=== PATIENT | female | born 1955 | race Caucasian/White ===

== ENCOUNTER 2023-11-03 14:16 | Inpatient (IN) | payer OTHER ==
[~2023-11-03] VITALS: Ht 167.6 cm; Wt 98.2 kg
[2023-11-03] VITALS (13 sets, daily range): BP systolic 104–126; BP diastolic 70–97
[~2023-11-03 14:16] MED LIST changes: -ASPI325; +Heparin Sodium,Porcine 5,000 UNIT/0.5 ML SDV SC ONE; -MAGNESIUM GLYC100 MG PO; -[UNRECOGNIZED DRUG - OTHER] PO
[2023-11-03] MEDS ORDERED: Verapamil HCL 2.5 MG/ML 2ML Injection ONE (14:18)
[2023-11-03] MEDS ORDERED: Heparin Sodium 1000 Units/ML 10ML MDV ONE ×2 (14:18→14:24)
[2023-11-03] MEDS ORDERED: Nitroglycerin 2 MG/20 ML BTL ONE (14:19)
[2023-11-03] MEDS ORDERED: NS 1,000 ML IV ONE ×2 (14:19→14:24)
[2023-11-03] MEDS ORDERED: NS 250 ML IV ONE (14:19)
[2023-11-03] MEDS ORDERED: FentaNYL Citrate 50 MCG/ML 2 ML Injection ONE (14:24)
[2023-11-03] MEDS ORDERED: Midazolam HCl 1MG / ML 2ML Vial ONE (14:24)
[2023-11-03] MEDS ORDERED: Ticagrelor 90 MG TABLET ONE (14:57)
[2023-11-03] MEDS ORDERED: Atropine Sulfate 0.1 MG/ML 10ML SYR ONE (15:10)
[2023-11-03 15:17] LABS: BASOPHILS ABSOLUTE AUTO 0.04 K/mm3 (0.00-0.23); BASOPHILS PERCENT AUTO 0 % (0-2); EOSINOPHILS ABSOLUTE AUTO 0.01 K/mm3 (0.00-0.68); EOSINOPHILS PERCENT AUTO 0 % (0-6); Hemoglobin 12.6 g/dL (11.5-16.0); IMMATURE GRAN ABSOLUTE AUTO 0.06 K/mm3 (0.00-0.10); IMMATURE GRAN PERCENT AUTO 0 % (0-1); LYMPHOCYTES ABSOLUTE AUTO 1.33 K/mm3 (0.84-5.20); LYMPHOCYTES PERCENT AUTO 10 % (21-46); MONOCYTES ABSOLUTE AUTO 1.25 K/mm3 (0.16-1.47); MONOCYTES PERCENT AUTO 9 % (4-13); Mean Corpuscular HGB 28.4 pg (26.0-34.0); Mean Corpuscular HGB Conc 32.3 g/dL (31.5-36.5); Mean Corpuscular Volume 88 fL (80-100); Mean Platelet Volume 11.2 fL (9.1-12.4); NEUTROPHILS PERCENT AUTO 81 % (41-73); Platelet Count 313 K/mm3 (150-400); RDW Coefficient Variation 14.5 % (11.7-14.2); RDW Standard Deviation 46.3 fL (35.1-46.3); Red Blood Cell Count 4.43 M/mm3 (3.80-5.20); White Blood Cell Count 13.79 K/mm3 (4.00-11.30)
[2023-11-03] MEDS ORDERED: Phenylephrine HCl 100 MCG/ML-NS 10MLSYR (1MG/10ML) ONE (15:18)
[2023-11-03] MEDS ORDERED: NS 500 ML IV ONE (15:32)
[2023-11-03 15:46] LABS: Albumin, Blood 3.1 g/dL (3.4-5.0); Albumin/Globulin Ratio 0.9 (0.8-1.8); Bilirubin, Total 0.6 mg/dL (0.1-1.0); Bun/Creatinine Ratio 28.9 (12.0-20.0); Creatinine, Blood 0.62 mg/dL (0.40-1.00); Globulin, Blood 3.4 g/dL (2.2-4.0); Potassium, Blood 4.1 mmol/L (3.5-5.5); Total Protein, Blood 6.5 g/dL (6.4-8.2)
[2023-11-03] MEDS ORDERED: Nitroglycerin 0.4 MG SUBL ONE (16:02)
[2023-11-03] MEDS ORDERED: ASPI325 (16:29)
--- NOTE | 2023-11-03 16:36 | NUR ---
ASSUMED CARE PATIENT ARRIVED TO ICU 1 FROM CALENDER TENDER VIA BED @ 1623. MONITOR SHOWS SR WITH RATE 60'S, MINIMAL ST ELEVATION. BP STABLE AND SPO2 HIGH 90'S ON ROOM AIR. TR BAND TO RT RADIAL WITH NO BLEEDING OR HEMATOMA-9CC AIR IN PLACE PER CALENDER TENDER NURSE. EKG COMPLETED UPON ARRIVAL AND ADMINISTRATION DEAN IN ROOM. PATIENT C/O MINIMAL CP, DIAPHORESIS, AND RT ELBOW PAIN THAT IS ALL IMPROVED FROM EARLIER.
[2023-11-03] MEDS ORDERED: MAGNESIUM GLYC100 MG PO (17:05)
[2023-11-03] MEDS ORDERED: HydrALAZINE HCl 20 MG / ML 1ML Vial IV PRN (18:30)
[2023-11-03] MEDS ORDERED: Acetaminophen 325 MG TABLET PO PRN (18:45)
--- NOTE | 2023-11-03 19:19 | NUR ---
SHIFT SUMMARY PATIENT REMAINS FREE OF CP AND DYSPNEA. RT RADIAL SITE REMAINS C/D/I AND FREE OF HEMATOMA, SOFT AND NONTENDER. TR BAND IN PLACE WITH 3CC AIR IN IT. ARMBOARD OVER RT WRIST. MONITOR REMAINS SINUS RHYTHM WITH RATE 60'S. BP STABLE. DR. MATT CAME TO BEDSIDE TO ASSESS PATIENT. PATIENT TOLERATED PO INTAKE WELL. NO BM OR URINE OUTPUT THIS SHIFT. NO OTHER CHANGES THIS SHIFT. BEDSIDE SHIFT REPORT COMPLETED WITH ROGER KRAFT.
[2023-11-03 19:32] LABS: Free Thyroxine 1.36 ng/dL (0.70-1.60)
[2023-11-03 19:33] LABS: Triiodothyronine, Free 2.15 pg/mL (2.18-3.98)
[2023-11-03] MEDS ORDERED: Ticagrelor 90 MG TABLET PO SCH (21:00)
[2023-11-03] MEDS ORDERED: [UNRECOGNIZED DRUG - OTHER] PO (21:22)
--- NOTE | 2023-11-03 23:42 | NUR ---
COBRA TRANSFER REPORT GIVEN TO ALEXANDER DURAN FOR ASSUMPTION OF CARE TO NOTIFY HIM THAT THE PATIENT LEFT WITH MEDICAL TRANSPORT TO [facility] AT 2325. PATIENT IS ALERT AND ORIENTED X4. HAS HAD NO COMPLAINTS OF CHEST PAIN. BECOMES SHORT OF BREATH UPON EXERTION. VITAL SIGNS STABLE ON ROOM AIR. IV SALINE LOCKED. TR BAND REMOVED, NO SIGNS OF BLEEDING AT RIGHT RADIAL ACCESS SITE. ARM BOARD IN PLACE. BELONGINGS SENT WITH PATIENT INCLUDING: WALLET, KEYS, GLASSES, CELL PHONE, PHONE LEAD BUSINESS SYSTEMS ANALYST, SHOES, CLOTHING, AND HOME MEDICATION.
[2023-11-04] MEDS ORDERED: Insulin Regular 100 UNIT/ML 10ML Vial SC SCH (07:30)
[2023-11-04] MEDS ORDERED: Atorvastatin 40 MG Tab PO SCH (09:00)
[2023-11-04] MEDS ORDERED: Aspirin 81 MG Chew PO SCH (09:00)
== END 2023-11-03 23:30 | disposition short-term general hospital (02) | DRG 322 ==
LOC: ER 14:16 → ICUE 14:23
PROVIDERS: Emergency Medicine; Family Medicine; ADMIT Student in an Organized Health Care Education/Training Program
PROC: 027034Z Dilation of Coronary Artery, One Artery with Drug-eluting Intraluminal Device, Percutaneous Approach (ICD-10-PCS; principal; 2023-11-03)
PROC: 4A023N7 Measurement of Cardiac Sampling and Pressure, Left Heart, Percutaneous Approach (ICD-10-PCS; 2023-11-03)
PROC: B2111ZZ Fluoroscopy of Multiple Coronary Arteries using Low Osmolar Contrast (ICD-10-PCS; 2023-11-03)
DX: I21.19 ST elevation (STEMI) myocardial infarction involving other coronary artery of inferior wall (principal); E87.1 Hypo-osmolality and hyponatremia; I25.10 Atherosclerotic heart disease of native coronary artery without angina pectoris; E78.5 Hyperlipidemia, unspecified; E66.01 Morbid (severe) obesity due to excess calories; G47.30 Sleep apnea, unspecified; M54.9 Dorsalgia, unspecified; I11.0 Hypertensive heart disease with heart failure; I50.9 Heart failure, unspecified; G89.29 Other chronic pain; D72.829 Elevated white blood cell count, unspecified; E11.9 Type 2 diabetes mellitus without complications; Z90.49 Acquired absence of other specified parts of digestive tract; Z91.199 Patient's noncompliance with other medical treatment and regimen due to unspecified reason; Z88.8 Allergy status to other drugs, medicaments and biological substances; Z79.82 Long term (current) use of aspirin; Z79.899 Other long term (current) drug therapy; Z87.891 Personal history of nicotine dependence; Z68.35 Body mass index [BMI] 35.0-35.9, adult
CPT/HCPCS: 76937; 80053; 83036; 84439; 84481; 84484; 85025; 85347; 85730; 93005; 93010; 93458; 99152; 99153; 99285-25; A9270; C1725; C1769; C1874; C1887; C1894; C8929; C9606; J0461; J1644; J2250; J2371; J3010; J7030; J7040; J7050; Q9957; Q9967

== ENCOUNTER → 2023-11-03 | Outpatient (CLI) | payer OTHER ==
[~2023-11-03] MED LIST: ACET500 PO; ASPI325; IBUP600 PO; IBUP800 PO; MAGNESIUM GLYC100 MG PO; OXYACE5T PO; RXOXYACE PO; [UNRECOGNIZED DRUG - OTHER] PO
[2023-11-03 14:00] LABS: BASOPHILS ABSOLUTE AUTO 0.03 K/mm3 (0.00-0.23); BASOPHILS PERCENT AUTO 0 % (0-2); EOSINOPHILS PERCENT AUTO 0 % (0-6); Hematocrit 43.2 % (33.0-51.0); Hemoglobin 13.9 g/dL (11.5-16.0); IMMATURE GRAN ABSOLUTE AUTO 0.07 K/mm3 (0.00-0.10); IMMATURE GRAN PERCENT AUTO 1 % (0-1); LYMPHOCYTES ABSOLUTE AUTO 1.24 K/mm3 (0.84-5.20); LYMPHOCYTES PERCENT AUTO 8 % (21-46); MONOCYTES ABSOLUTE AUTO 1.42 K/mm3 (0.16-1.47); MONOCYTES PERCENT AUTO 10 % (4-13); Mean Corpuscular HGB 28.6 pg (26.0-34.0); Mean Corpuscular HGB Conc 32.2 g/dL (31.5-36.5); Mean Corpuscular Volume 89 fL (80-100); Mean Platelet Volume 11.2 fL (9.1-12.4); NEUTROPHILS ABSOLUTE AUTO 12.06 K/mm3 (1.96-9.15); NEUTROPHILS PERCENT AUTO 81 % (41-73); Platelet Count 340 K/mm3 (150-400); RDW Coefficient Variation 14.7 % (11.7-14.2); RDW Standard Deviation 46.7 fL (35.1-46.3); Red Blood Cell Count 4.86 M/mm3 (3.80-5.20); White Blood Cell Count 14.82 K/mm3 (4.00-11.30)
[2023-11-03 14:18] LABS: Albumin, Blood 3.6 g/dL (3.4-5.0); Albumin/Globulin Ratio 0.9 (0.8-1.8); Bilirubin, Total 0.7 mg/dL (0.1-1.0); Bun/Creatinine Ratio 17.5 (12.0-20.0); Calcium, Blood 9.3 mg/dL (8.5-10.1); Creatinine, Blood 0.97 mg/dL (0.40-1.00); Globulin, Blood 3.9 g/dL (2.2-4.0); Magnesium, Blood 2.1 mg/dL (1.6-2.4); Thyroid Stimulating Hormone 5.127 uIU/mL (0.360-4.800); Total Protein, Blood 7.5 g/dL (6.4-8.2)
== END | disposition home or self-care (01) ==
LOC: LAB SHORT 13:54 → LAB 13:54
PROVIDERS: Chiropractor
DX: R10.13 Epigastric pain (principal); R53.83 Other fatigue
CPT/HCPCS: 80053; 83735; 83880; 84443; 84484; 85025; 85379

== ENCOUNTER → 2024-01-26 | Outpatient (CLI) | payer OTHER ==
[~2024-01-26] MED LIST changes: +ASPI325; -Heparin Sodium,Porcine 5,000 UNIT/0.5 ML SDV SC ONE; +MAGNESIUM GLYC100 MG PO; +[UNRECOGNIZED DRUG - OTHER] PO
[2024-01-26 13:59] LABS: Creatinine, Urine Random 58.4 mg/dL (27.00-270.00)
[2024-01-26 14:01] LABS: Microalb/Creat Ratio UR, Rand 10.908 mg/g (0.000-30.000); Microalbumin, Random Urine 6.37 mg/L (0.000-20.000)
== END | disposition home or self-care (01) ==
LOC: LAB 10:00 → LAB SHORT 10:00
PROVIDERS: Physician Assistant Medical
DX: E11.9 Type 2 diabetes mellitus without complications (principal)
CPT/HCPCS: 82043; 82570

== ENCOUNTER 2024-04-25 17:36 | Inpatient (IN) | payer OTHER ==
[~2024-04-25] VITALS: Ht 167.6 cm; Wt 84.6 kg
[2024-04-25] MEDS ORDERED: FLU VACC TS2024-25(6MOS UP)/PF 45 MCG/0.5 ML SYRINGE IM SCH (18:05)
[2024-04-25] MEDS ORDERED: ATOR40TA PO (18:09)
[2024-04-25] MEDS ORDERED: CLOP75 PO (18:09)
[2024-04-25] MEDS ORDERED: FURO40 PO (18:10)
[2024-04-25] MEDS ORDERED: DOXE25 PO (18:10)
[2024-04-25] MEDS ORDERED: FARXIGA10 MG PO (18:10)
[2024-04-25] MEDS ORDERED: K-TAB ER20 ME1 PO (18:11)
[2024-04-25] MEDS ORDERED: Ropinirole HCl1 MG PO (18:12)
[2024-04-25 18:32] LABS: BASOPHILS ABSOLUTE AUTO 0.05 K/mm3 (0.00-0.23); BASOPHILS PERCENT AUTO 1 % (0-2); EOSINOPHILS ABSOLUTE AUTO 0.02 K/mm3 (0.00-0.68); EOSINOPHILS PERCENT AUTO 0 % (0-6); Hematocrit 24.3 % (33.0-51.0); Hemoglobin 7.2 g/dL (11.5-16.0); IMMATURE GRAN ABSOLUTE AUTO 0.02 K/mm3 (0.00-0.10); IMMATURE GRAN PERCENT AUTO 0 % (0-1); LYMPHOCYTES PERCENT AUTO 18 % (21-46); MONOCYTES ABSOLUTE AUTO 0.93 K/mm3 (0.16-1.47); MONOCYTES PERCENT AUTO 10 % (4-13); Mean Corpuscular HGB 23.4 pg (26.0-34.0); Mean Corpuscular HGB Conc 29.6 g/dL (31.5-36.5); Mean Corpuscular Volume 79 fL (80-100); Mean Platelet Volume 10.8 fL (9.1-12.4); NEUTROPHILS ABSOLUTE AUTO 7.02 K/mm3 (1.96-9.15); NEUTROPHILS PERCENT AUTO 71 % (41-73); Platelet Count 473 K/mm3 (150-400); RDW Standard Deviation 54.6 fL (35.1-46.3); Red Blood Cell Count 3.08 M/mm3 (3.80-5.20); White Blood Cell Count 9.84 K/mm3 (4.00-11.30)
[2024-04-25] MEDS ORDERED: Acetaminophen 325 MG TABLET PO PRN (18:35)
--- NOTE | 2024-04-25 18:42 | NUR ---
ARRIVAL TO PCU: Patient arrived to PCU 07 via WC from the cardiology office. She is alert and oriented x3. She reported a mild headache, Tylenol given. HRR, VSS. She is 100 % on RA. She has 3+ pitting edema to BLE. She has a compression sleeve to her RLE. She has a Kerlex dressing to her LLE, she states home health has been coming out to change her dressings. She states she uses her walker and WC at home to transfer. She states she recently had a prolonged stay at a hospital [facility] and has been home for a couple of months with her . Dr. Rivera is at the bedside. See new orders. Isauro RN at bedside to attempt IV. Labs have been drawn. Patient denies other needs at this time. Call light in reach.
[2024-04-25 18:50] VITALS: BP 126/70
[2024-04-25] MEDS ORDERED: CeFAZolin Sodium 1,000 MG in NS 50 ML IV SCH (19:00)
[2024-04-25 19:09] LABS: Albumin, Blood 3.3 g/dL (3.4-5.0); Albumin/Globulin Ratio 0.9 (0.8-1.8); Bilirubin, Total 0.6 mg/dL (0.1-1.0); Bun/Creatinine Ratio 18.2 (12.0-20.0); C-Reactive Protein, High Sens. 13.8 mg/dL (0.000-3.000); Calcium, Blood 9.2 mg/dL (8.5-10.1); Creatinine, Blood 1.48 mg/dL (0.40-1.00); Globulin, Blood 3.7 g/dL (2.2-4.0); Potassium, Blood 3.9 mmol/L (3.5-5.5)
[2024-04-25] MEDS ORDERED: rOPINIRole HCl 2 MG Tab PO SCH (21:00)
[2024-04-25] MEDS ORDERED: Lactobacil 2-S.Thermo-Bifido 1 1 Cap PO SCH (21:00)
[2024-04-25] MEDS ORDERED: Misc. Capsule PO SCH (21:00)
[2024-04-25] MEDS ORDERED: Apixaban 5 MG Tab PO SCH (21:00)
[2024-04-25] MEDS ORDERED: Etomidate 2MG / ML 10ML Vial XX ONE (21:26)
[2024-04-25] MEDS ORDERED: Midazolam HCl 1MG / ML 2ML Vial XX ONE (21:26)
[2024-04-25 21:45] VITALS: BP 118/72
[2024-04-26] VITALS (9 sets, daily range): BP systolic 100–123; BP diastolic 61–84
[2024-04-26] MEDS ORDERED: Pantoprazole Sodium 40 MG Tab PO SCH (06:00)
[2024-04-26 06:53] LABS: BASOPHILS ABSOLUTE AUTO 0.04 K/mm3 (0.00-0.23); BASOPHILS PERCENT AUTO 1 % (0-2); EOSINOPHILS ABSOLUTE AUTO 0.03 K/mm3 (0.00-0.68); EOSINOPHILS PERCENT AUTO 0 % (0-6); Hematocrit 21.4 % (33.0-51.0); Hemoglobin 6.5 g/dL (11.5-16.0); IMMATURE GRAN ABSOLUTE AUTO 0.03 K/mm3 (0.00-0.10); IMMATURE GRAN PERCENT AUTO 0 % (0-1); LYMPHOCYTES ABSOLUTE AUTO 1.29 K/mm3 (0.84-5.20); LYMPHOCYTES PERCENT AUTO 16 % (21-46); MONOCYTES ABSOLUTE AUTO 0.68 K/mm3 (0.16-1.47); MONOCYTES PERCENT AUTO 9 % (4-13); Mean Corpuscular HGB 24.2 pg (26.0-34.0); Mean Corpuscular HGB Conc 30.4 g/dL (31.5-36.5); Mean Corpuscular Volume 80 fL (80-100); Mean Platelet Volume 10.5 fL (9.1-12.4); NEUTROPHILS ABSOLUTE AUTO 5.87 K/mm3 (1.96-9.15); NEUTROPHILS PERCENT AUTO 74 % (41-73); Platelet Count 377 K/mm3 (150-400); RDW Coefficient Variation 18.9 % (11.7-14.2); RDW Standard Deviation 55.2 fL (35.1-46.3); Red Blood Cell Count 2.69 M/mm3 (3.80-5.20); White Blood Cell Count 7.94 K/mm3 (4.00-11.30)
[2024-04-26 07:19] LABS: Bilirubin, Total 0.5 mg/dL (0.1-1.0); Bun/Creatinine Ratio 20.3 (12.0-20.0); Calcium, Blood 8.5 mg/dL (8.5-10.1); Creatinine, Blood 1.33 mg/dL (0.40-1.00); Potassium, Blood 3.8 mmol/L (3.5-5.5)
[2024-04-26] MEDS ORDERED: NS 500 ML IV SCH (07:25)
[2024-04-26] MEDS ORDERED: Potassium Chloride 20 MEQ TabCR PO SCH (09:00)
[2024-04-26] MEDS ORDERED: Metoprolol Succinate 25 MG TABCR PO SCH (09:00)
[2024-04-26] MEDS ORDERED: Clopidogrel Bisulfate 75 MG Tab PO SCH (09:00)
[2024-04-26] MEDS ORDERED: Empagliflozin 25 MG TAB PO SCH (09:00)
[2024-04-26] MEDS ORDERED: Atorvastatin 40 MG Tab PO SCH (09:00)
[2024-04-26] MEDS ORDERED: Furosemide 10 MG/ML 4ML Vial IV SCH (09:00)
--- NOTE | 2024-04-26 09:15 | NUR ---
AM NOTE: PATIENT ALERT AND ORIENTED X3. FORGETFUL AT TIMES. USING CALL LIGHT FOR NEEDS. DENIES PAINS. UP WITH 1 PERSON ASSIST TO BSC. OVERALL VERY WEAK. USES WALKER AND WHEELCHAIR AT BASELINE. CAREGIVER. ABLE TO TURN SELF IN BED. TELE SHOWING SR WITH OCCASIONAL AV/V PACED. HR 70-80'S DENIES CHEST PAIN/PRESSURE/PALPITATIONS. SBP 100-110'S. EDEMA NOTED TO BLE. IV LASIX GIVEN THIS AM PER ORDERS. 1 UNIT OF PRBC TO INFUSE. ON ROOM AIR, LUNG SOUNDS CLEAR AND DIM IN BASES. EVEN AND UNLABORED RESPIRATIONS. NO COUGH NOTED. BOWEL TONES PRESENT. TOLERATING PO DIET. DENIES ABDOMINAL PAIN/NAUSEA. HEMRRHOIDS TO RECTUM WITH SCANT ACTIVE BRIGHT RED BLOOD WHEN WIPING. OCCULT STOOL COLLECTED THIS AM PER ORDERS. PUREWICK IN PLACE COLLECTING YELLOW URINE. ATTENDS. HISTORY OF VAGINAL BLEEDING. NONE NOTED THIS AM WHEN UP TO BSC. MED REC UPDATED WITH PO HOME PROGESTERONE DOSING. DR. MATT AWARE. DR. MATT TO BEDSIDE THIS AM, THIS RN PRESENT. BLOOD CONSENT COMPLETED. ORDERS FOR REPEAT H&H AT 1500. SKIN OVERALL PALE. WOUND TO LEFT LOWER EXTREMITY AND RIGHT FOOT. DRESSSINGS C/D/I. CALL LIGHT IN REACH. DENIES NEEDS AT THIS TIME.
[2024-04-26] MEDS ORDERED: MEDR10 PO (10:22)
[2024-04-26 11:27] LABS: Stool Occult Blood Guaiac 1 Pos (Neg)
--- NOTE | 2024-04-26 13:36 | NUR ---
VITAL SIGNS REMAIN STABLE. PATIENT TIRED AND REQUESTING TO NAP. GI CONSULT PLACED. BLOOD TRANSFUSION COMPLETE. IV ABX INFUSING.
--- NOTE | 2024-04-26 15:34 | NUR ---
SANDRA VAIL CALLED BY THIS RN AND UPDATE PROVIDED.
[2024-04-26] MEDS ORDERED: Pantoprazole Sodium 40 MG Injection IV SCH (16:30)
[2024-04-26 17:13] LABS: Hematocrit 25.9 % (33.0-51.0); Hemoglobin 7.9 g/dL (11.5-16.0)
--- NOTE | 2024-04-26 18:10 | NUR ---
SHIFT SUMMARY: NO ACUTE CHANGES. PATIENT REMAINS ORIENTED BUT FORGETFUL UPON WAKING. UP TO RECLINER THIS AFTERNOON. 1 UNIT OF PRBC INFUSED. ABX INFUSED. ON ROOM AIR. TELE SHOWING SR. TOLERATING PO DIET AT THIS TIME. GI CONSULT IN PLACE. ECHO COMPLETED WELL ARTERIAL LOWER EXTREMITY STUDY. PUREWICK REMAINS IN PLACE. STRICT I/O. PATIENT TALKING TO ON PHONE AT THIS TIME. CALL LIGHT IN REACH.
--- NOTE | 2024-04-26 20:01 | NUR ---
ASSUMPTION OF CARE ASSUMMED CARE OF PT AT 1900.PT SITTING AT THE EDGE OF THE BED.PT STATES THAT SHE CANNOT REMEMBER THE NAME OF WHAT SHE WANTS.PT TEARFUL AND FRUSTRATED THAT SHE IS NOT ABLE TO REMEMBER THINGS.BEDSIDE REPORT COMPLETED,PT DENIES PAIN,DENIES NEEDS.PLAN OF CARE REVIEWED.CALL LIGHT AND PT'S ITEMS WITHIN REACH.WILL CONTINUE TO MONITOR.
[2024-04-27] VITALS (11 sets, daily range): BP systolic 106–153; BP diastolic 61–129
[2024-04-27 02:52] LABS: BASOPHILS ABSOLUTE AUTO 0.02 K/mm3 (0.00-0.23); BASOPHILS PERCENT AUTO 0 % (0-2); EOSINOPHILS ABSOLUTE AUTO 0.03 K/mm3 (0.00-0.68); EOSINOPHILS PERCENT AUTO 0 % (0-6); Hematocrit 26.5 % (33.0-51.0); Hemoglobin 8.3 g/dL (11.5-16.0); IMMATURE GRAN ABSOLUTE AUTO 0.03 K/mm3 (0.00-0.10); IMMATURE GRAN PERCENT AUTO 0 % (0-1); LYMPHOCYTES ABSOLUTE AUTO 1.54 K/mm3 (0.84-5.20); LYMPHOCYTES PERCENT AUTO 17 % (21-46); MONOCYTES ABSOLUTE AUTO 0.73 K/mm3 (0.16-1.47); MONOCYTES PERCENT AUTO 8 % (4-13); Mean Corpuscular HGB 24.8 pg (26.0-34.0); Mean Corpuscular HGB Conc 31.3 g/dL (31.5-36.5); Mean Corpuscular Volume 79 fL (80-100); Mean Platelet Volume 10.5 fL (9.1-12.4); NEUTROPHILS ABSOLUTE AUTO 6.99 K/mm3 (1.96-9.15); NEUTROPHILS PERCENT AUTO 75 % (41-73); Platelet Count 417 K/mm3 (150-400); RDW Coefficient Variation 18.7 % (11.7-14.2); RDW Standard Deviation 53.7 fL (35.1-46.3); Red Blood Cell Count 3.35 M/mm3 (3.80-5.20); White Blood Cell Count 9.34 K/mm3 (4.00-11.30)
[2024-04-27 03:11] LABS: Albumin, Blood 3.2 g/dL (3.4-5.0); Anion Gap 11 mmol/L (3-11); Blood Urea Nitrogen 29 mg/dL (8-24); Bun/Creatinine Ratio 18.8 (12.0-20.0); CO2, Blood 21 mmol/L (21-32); Chloride, Blood 113 mmol/L (98-108); Creatinine, Blood 1.54 mg/dL (0.40-1.00); Glomerular Filtration Rate 37 (60-); Glucose, Blood 145 mg/dL (70-99); Phosphorus, Blood 4.4 mg/dL (2.5-4.9); Potassium, Blood 3.8 mmol/L (3.5-5.5); Sodium, Blood 141 mmol/L (136-145)
--- NOTE | 2024-04-27 05:51 | NUR ---
SHIFT SUMMARY PT HAS BEEN AWAKE MOST OF THE NIGHT,TOOK A FEW NAPS.PT CONFUSED,OCCASIONALLY AGITATED STATING THAT SHE WOULD LIKE TO GO HOME.PT EASILY REDIRECTABLE SOMETIMES BUT NOT ALL THE TIME.GOT OUT OF BED SEVERAL TIMES,STAFF NOTIFIED BY THE BED ALARM .PT ASSISTED TO THE BEDSIDE COMMODE MULTIPLE TIMES,HAD A SMALL FORMED BLACK STOOL ONCE BUT THE REST OF THE TIME JUST HAD SMEARS.PT COMPLAINED OF PAIN WIPING AND ALSO RECTAL PAIN WHILE PASSING STOOL.REMOVED THE TELEMETRY PATCHES MULTIPLE TIMES,PULLED IV.IV REPLACED AFTER EXPLAINING TO PT THE NEED FOR IV.DRESSING TO LLE CDI,WOUND TO RIGHT FOOT COVERED WITH MEPILEX.BLADDER SCANNED FOR NO URINE OUTPUT FOR >8 HOURS.BLADDER SCANNER REVEALED 556ML,STRAIGHT CATH 600ML OUT.PT SITTING UP IN CHAIR AT THIS TIME,CHAIR ALARM ON.PT DENIES PAIN,DENIES NEEDS.WILL GIVE REPORT TO DAYSHIFT NURSE FOR CONTINUITY OF CARE.CALL LIGHT AND PT'S ITEMS WITHIN REACH.
[2024-04-27 07:09] LABS: FERRITIN 18 ng/mL (15-150)
[2024-04-27 08:10] LABS: IRON BIND.CAP.(TIBC) 364 ug/dL (250-450); IRON SATURATION 2 % (15-55); IRON, SERUM 8 ug/dL (27-139); UIBC 356 ug/dL (118-369)
[2024-04-27] MEDS ORDERED: MedroxyPROGESTERone Acetate 10 MG Tab PO SCH (09:00)
[2024-04-27] MEDS ORDERED: Sod Ferric Gluc Complx/Sucrose 125 MG in NS 100 ML IV SCH (09:37)
[2024-04-27] MEDS ORDERED: NS 250 ML IV PRN (11:50)
--- NOTE | 2024-04-27 12:25 | NUR ---
wound care completed to the right foot as well as the wound on the inner right lower leg, per wound care orders. Pt tolerated it very well. IV antibiotic infusing at this time, vital signs are stable. Bed alarm is on as pt is very forgetful.
--- NOTE | 2024-04-27 13:11 | NUR ---
Pt has stool in rectum, bulging out after passing small amount of soft very dark stool while on BSC. She was unable to pass any more stool. Also had not voided since noc shift when straight cath was done. Bladder scan at this time showed 595; intermittent straight catheterization done and 600 cc clear yellow urine evacuated. Pt tolerated well.
--- NOTE | 2024-04-27 13:54 | NUR ---
Pt states that she has to take ex-Lax at home for constipation.
[2024-04-27] MEDS ORDERED: Lactated Ringer's 1,000 ML IV SCH (15:55)
--- NOTE | 2024-04-27 16:54 | NUR ---
Pt is alert, oriented only to person, place and some of her recent history, but her memory is spotty at best and requires frequent reminders due to her confusion and forgetfulness of conversations and the plan of care. She has been calm, cooperative and pleasantly conversant. Waiting on EGD to be done today. She has been NPO since 1400 today, and only had water and ice this morning. The pt also needs bowel care as she is unable to pass the stool despite attempting 2-3 times today on Bedside commode. Has also required straight catheterization at least twice in the past 24 hours for urinary retention >400cc.
--- NOTE | 2024-04-27 19:34 | NUR ---
ASSUMPTION OF CARE ASSUMED CARE OF PT AT 1900,BEDSIDE REPORT COMPLETED.PT WIDE AWAKE AND PLEASANT,ANSWERING QUESTIONS APPROPRIATELY.A&O TO PERSON,PLACE AND SELF.DENIES PAIN,DENIES NEEDS.MONTENEGRO TO DEPENDENT DRAINAGE,PATENT AND DRAINING CLEAR YELLOW URINE.PLAN OF CARE REVIEWED.CALL LIGHT AND PT'S ITEMS WITHIN REACH,BED ALARM ON.WILL CONTINUE TO MONITOR.
[2024-04-27] MEDS ORDERED: Lidocaine HCl 4% 5 ML SDA ONE ×2 (20:59→22:20)
[2024-04-27] MEDS ORDERED: propofoL 20 ML IV ONE (21:00)
[2024-04-27] MEDS ORDERED: ePHEDrine Sulfate 50 MG/ML 1ML Injection ONE (21:48)
--- NOTE | 2024-04-27 22:20 | NUR ---
04/27/242219 Darryl Molina WITH DR. LINO; SEE ANESTHESIA RECORDS.
[2024-04-28] VITALS (8 sets, daily range): BP systolic 86–120; BP diastolic 61–73
--- NOTE | 2024-04-28 00:18 | NUR ---
CARE NOTE PT LEFT FOR EGD VIA WHEELCHAIR AT 2200,BACK AT 2312.PT AWAKE,A&O TO SELF,PERSON AND PLACE.DENIES PAIN.PER REPORT,LIDOCAINE WAS USED AT THE BACK OF PT'S THROAT THEREFORE SHOULD KEEP PT NPO UNTIL SHE REGAINS GAG REFLEX.PLAN OF CARE REVIEWED.CALL LIGHT AND PT'S ITEMS WITHIN REACH,BED ALARM ACTIVATED.WILL CONTINUE TO MONITOR.
[2024-04-28 03:57] LABS: BASOPHILS ABSOLUTE AUTO 0.06 K/mm3 (0.00-0.23); BASOPHILS PERCENT AUTO 1 % (0-2); EOSINOPHILS ABSOLUTE AUTO 0.13 K/mm3 (0.00-0.68); EOSINOPHILS PERCENT AUTO 1 % (0-6); Hematocrit 30.5 % (33.0-51.0); Hemoglobin 9.4 g/dL (11.5-16.0); IMMATURE GRAN ABSOLUTE AUTO 0.03 K/mm3 (0.00-0.10); IMMATURE GRAN PERCENT AUTO 0 % (0-1); LYMPHOCYTES ABSOLUTE AUTO 1.77 K/mm3 (0.84-5.20); LYMPHOCYTES PERCENT AUTO 19 % (21-46); MONOCYTES ABSOLUTE AUTO 0.98 K/mm3 (0.16-1.47); MONOCYTES PERCENT AUTO 11 % (4-13); Mean Corpuscular HGB 24.4 pg (26.0-34.0); Mean Corpuscular HGB Conc 30.8 g/dL (31.5-36.5); Mean Corpuscular Volume 79 fL (80-100); Mean Platelet Volume 10.2 fL (9.1-12.4); NEUTROPHILS ABSOLUTE AUTO 6.21 K/mm3 (1.96-9.15); NEUTROPHILS PERCENT AUTO 68 % (41-73); NRBC ABSOLUTE 0.02 K/mm3 (0.00-0.02); NRBC Auto 0.2 /100 WBC (0.0-0.2); Platelet Count 426 K/mm3 (150-400); RDW Coefficient Variation 18.9 % (11.7-14.2); RDW Standard Deviation 54.3 fL (35.1-46.3); Red Blood Cell Count 3.85 M/mm3 (3.80-5.20); White Blood Cell Count 9.18 K/mm3 (4.00-11.30)
[2024-04-28 04:16] LABS: Bun/Creatinine Ratio 21.7 (12.0-20.0); Calcium, Blood 9.1 mg/dL (8.5-10.1); Creatinine, Blood 1.43 mg/dL (0.40-1.00); Potassium, Blood 3.2 mmol/L (3.5-5.5)
--- NOTE | 2024-04-28 05:54 | NUR ---
SHIFT SUMMARY PT FELL ASLEEP FOR A FEW MINUTES AFTER SHE RETURNED FROM THE PROCEDURE.PT WOKE UP AT 0130 CONFUSED,AGITATED STATING THAT SHE WANTS TO GET OUT OF BED AND GO GET OVALTINE MILK.PT TOOK OFF GOWN,PULLED THE TELEMETRY WIRES OFF,REMOVED SOCKS AND WOUND DRESSING ON RIGHT FOOT,ATTEMPTING TO PULL MONTENEGRO CATHETER.PT NOT REDIRECTABLE,VERBALLY AND PHYSICALLY AGGRESSIVE.PT ASKED FOR CLOTHES,PUT IN THE BLUE PAPER PANTS AND TOP.PT TRANSFERRED TO CHAIR,CHAIR ALARM ACTIVATED.PT SAT ON THE CHAIR FOR LESS THAN 30 MINUTES THEN ASKED TO GO FOR A WALK.PT PULLED OUT THE IV AT THIS TIME.GAIT BELT, WALKER AND WHEELCHAIR FOLLOWING BEHIND, USED TO AMBULATE PT TO THE NURSE'S STATION.PT TAKEN BACK TO ROOM ON WHEELCHAIR AT 0320.ANOTHER IV INSERTED THEREAFTER.PT FELL ASLEEP BUT WOULD OCCASIONALLY WAKE UP AND FIDGET WITH THE WIRES AND CORDS.PT AWAKE AT THIS TIME ATTEMPTING TO GET OUT OF BED.REDIRECTED TO STAY IN BED AND LEAVE THE WIRES ALONE.WILL REPORT TO DAYSHIFT NURSE FOR CONTINUITY OF CARE.CALL LIGHT AND PT'S ITEMS WITHIN REACH,BED ALARM ON. SHE CALMED DOWN.
[2024-04-28] MEDS ORDERED: Pantoprazole Sodium 40 MG Tab PO SCH (06:00)
--- NOTE | 2024-04-28 08:28 | NUR ---
Pt was evalutated by speech therapist for swallow safety. Call from Dr. Garibay to keep pt on clear liquids today, and prep for colonoscopy tomorrow. Order changed to clear liquid diet. The pt did not yet eat breakfast.
[2024-04-28] MEDS ORDERED: Potassium Chloride 20 MEQ TabCR PO ONE (09:30)
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
[2024-04-28] MEDS ORDERED: Peg/Electrolytes 4,000 ML BTL PT ONE (18:05)
--- NOTE | 2024-04-28 18:07 | NUR ---
Dr. Garibay here to see the patient. Plan is to place NGTube for administration of 1/2 gallon of Golytely this evening, followed by the other half in the morning as colonscopy prep. Scope planned for tomorrow.
--- NOTE | 2024-04-28 18:44 | NUR ---
NGTube was placed after measurement per the usual protocol. Pt tolerated it very well. Verified placement with aspiration of gastric contents and ausculation of injected air. Pt was started on Golytely at 1830. She tolerated without nausea nor vomiting.
[2024-04-29] VITALS (8 sets, daily range): BP systolic 108–152; BP diastolic 75–97
[2024-04-29 04:17] LABS: BASOPHILS ABSOLUTE AUTO 0.06 K/mm3 (0.00-0.23); BASOPHILS PERCENT AUTO 1 % (0-2); EOSINOPHILS ABSOLUTE AUTO 0.07 K/mm3 (0.00-0.68); EOSINOPHILS PERCENT AUTO 1 % (0-6); Hematocrit 28.1 % (33.0-51.0); Hemoglobin 8.5 g/dL (11.5-16.0); IMMATURE GRAN ABSOLUTE AUTO 0.04 K/mm3 (0.00-0.10); IMMATURE GRAN PERCENT AUTO 0 % (0-1); LYMPHOCYTES PERCENT AUTO 14 % (21-46); MONOCYTES ABSOLUTE AUTO 0.87 K/mm3 (0.16-1.47); MONOCYTES PERCENT AUTO 9 % (4-13); Mean Corpuscular HGB 24.2 pg (26.0-34.0); Mean Corpuscular HGB Conc 30.2 g/dL (31.5-36.5); Mean Corpuscular Volume 80 fL (80-100); Mean Platelet Volume 11.1 fL (9.1-12.4); NEUTROPHILS ABSOLUTE AUTO 7.08 K/mm3 (1.96-9.15); NEUTROPHILS PERCENT AUTO 75 % (41-73); Platelet Count 382 K/mm3 (150-400); RDW Coefficient Variation 19.4 % (11.7-14.2); RDW Standard Deviation 55.4 fL (35.1-46.3); Red Blood Cell Count 3.51 M/mm3 (3.80-5.20); White Blood Cell Count 9.42 K/mm3 (4.00-11.30)
[2024-04-29 04:39] LABS: Bun/Creatinine Ratio 22.5 (12.0-20.0); Calcium, Blood 8.5 mg/dL (8.5-10.1); Creatinine, Blood 1.29 mg/dL (0.40-1.00); Potassium, Blood 3.5 mmol/L (3.5-5.5)
--- NOTE | 2024-04-29 06:16 | NUR ---
SHIFT SUMMARY PT ALERT, ORIENTED TO NAME/, PLACE, AND YEAR. PT CONFUSED, COOPERATIVE TO CARE. PT FORGETS LIMITIATIONS, BED ALARM ON. PT HAD ONE EPISODE THIS SHIFT WHERE SHE WOKE UP AGITATED AND RIPPED HER GOWN OFF AND RIPPED NG TUBE OUT. NG TUBE INTACT, PT IN NO DISTRESS. O2 >92% ON RA, DENIES SOB. PT STARTED GOLYTELY BOWEL PREP AT START OF SHIFT FOR SCOPE TODAY. PT HAS HAD 3 FORMED DARK STOOLS, AND 3 LIQUID DARK STOOLS. PT HAS MONTENEGRO CATH IN PLACE, DRAINING TO GRAVITY. PT RESTING IN BED AT THIS TIME. WILL MONITOR PT AND REPORT TO ONCOMING RN.
--- NOTE | 2024-04-29 07:13 | NUR ---
Bedside shift report received from ROGER Cr. Pt is sleeping but arouses easily. She is calm and responds verbally. Per report pt pulled out the NGT at 0300. Pt is agreeable to having it replaced, as she does not want to drink the Golytely--taste is disagreeable to her. Vital signs are stable. NGT to be placed right away and prep continued.
[2024-04-29] MEDS ORDERED: ZINC OXIDE/PETROLATUM, YELLOW 1 APPLIC/71 GM PASTE TOP PRN (10:25)
[2024-04-29] MEDS ORDERED: Peg/Electrolytes 4,000 ML BTL PO STA (10:50)
--- NOTE | 2024-04-29 13:06 | NUR ---
called placed to Dr. Garibay at 1300; Dr. You updated on patients stool progress from bowel prep-Doctor ordered for additional 1/2 gallon of GoLYTELY.
--- NOTE | 2024-04-29 14:30 | NUR ---
Dr. Garibay at bedside; observed bowel movement and wants to continue with GoLYTELY until bowel movements are loose and light yellow in color. order in for GoLYTELY.
[2024-04-29] MEDS ORDERED: Peg/Electrolytes 4,000 ML BTL PO ONE (14:35)
--- NOTE | 2024-04-29 16:31 | NUR ---
call received from day surgery for update. patient just had solid bm; to continue Muralily and call Dr. Garibay in 1 hour with update.
[2024-04-29] MEDS ORDERED: Potassium Chloride 20 MEQ TabCR PO SCH (17:00)
--- NOTE | 2024-04-29 17:41 | NUR ---
SHIFT SUMMARY. PATIENT IS ALERT TO PERSON, SELF, PLACE AND SITUATION AT TIMES. PATIENT HAD ADDITIONAL 2LITERS OF BOWEL PREP T/O THE DAY DUE TO CONTUING TO HAVE SOLID BOWEL MOVEMENTS INTERMITTENTLY; PATIENTS BOWELS CLEARED AT 1645 COLONOSCOPY TO DONE TONIGHT 04/29/24 APPROX 1845. PATIENT HAS FLEXISEAL FECAL BOOKKEEPER ASSISTANT IN PLACE FOR WATERY BOWEL MOVEMENTS FROM GoLYTELY. PATIENTS CATHETER IS PATENT AND DRAINING TO GRAVITY. NG TUBE REMOVED; PATIENT TOLERATED WELL. PATIENT IS VERY TIRED AND RESTING AT THIS TIME. BED IS LOCKED IN REVERSE TRENDELLENBERG, BED ALARM IN FOR PATIENT SAFETY. CARE IS ONGOING.
--- NOTE | 2024-04-29 18:27 | NUR ---
patient left to surgery for colonoscopy at 0821 via [facility].
[2024-04-29] MEDS ORDERED: Lactated Ringer's 1,000 ML IV SCH (18:35)
[2024-04-29] MEDS ORDERED: propofoL 20 ML IV ONE (19:29)
--- NOTE | 2024-04-29 19:57 | NUR ---
04/29/241956 Amarilis Nunn WITH JM FLORES; SEE ANESTHESIA RECORDS.
--- NOTE | 2024-04-29 20:52 | NUR ---
ASSUMPTION OF CARE PT DOWN FOR PROCEDURE AT START OF SHIFT. REPORT RECIEVED FROM MANOJ DURAN. PT ARRIVED TO UNIT FROM DAY SURGERY AROUND 2108. PT STOOD AND TRANSFERED FROM [facility] TO BED WITH NURSE ASSIST. REPORT RECIEVED FROM KERMIT DAY NEGATIVE RETOUCHER. PT ALERT, ORIENTED TO NAME/, PLACE, AND YEAR. O2>92% ON RA, DENIES SOB. HR IN THE 60's, PACED RHYTHM. DENIES CP.PRESSURE, NUMB/TINGLING, SBP STABLE. PT RESTING IN BED AT THIS TIME. WILL MONITOR PT.
[2024-04-30 00:30] LABS: Bun/Creatinine Ratio 18.3 (12.0-20.0); Calcium, Blood 8.8 mg/dL (8.5-10.1); Creatinine, Blood 1.04 mg/dL (0.40-1.00); Magnesium, Blood 2.4 mg/dL (1.6-2.4); Potassium, Blood 2.9 mmol/L (3.5-5.5)
[2024-04-30] MEDS ORDERED: Dextrose 50% 50 ML Syringe IV ONE (02:00)
[2024-04-30] MEDS ORDERED: Potassium Chloride 40 MEQ in NS 250 ML IV ONE (02:45)
[2024-04-30] MEDS ORDERED: NS 500 ML IV SCH (03:05)
[2024-04-30 04:02] VITALS: BP 130/73
--- NOTE | 2024-04-30 04:35 | NUR ---
UPDATE RESIDENT ROUNDING IN PCU. WHILE RESIDENT ON FLOOR ASKED FOR LABS TO CHECK ELECTROLYTES FOLLOWING PTS LARGE AMOUNT OF BOWEL PREP AND MULTIPLE BOWEL MOVEMENTS. LABS ORDERED. PT HAD LABS COMPLETED, POTASSIUM CAME BACK AT 2.9 AND A BG OF 64. PT ALERT AND ASMPYTOMATIC, DENIES DIZZY, N/V, NOT CLAMMY/DIAPHRETIC, MENTATION AT BASELINE. PT WAS GIVEN 15 GRAMS OF CARBS FOLLOWED BY 3 OUNCES OF ORANGE JUICE. RECHECKED BG AFTER 15 MINUTES BG AT 54. PT GIVEN ANOTHER 3 OUNCES OF ORANGE JUICE, BG AT 52 AFTER THIS. RESIDENT CALLED AND NOTIFIED OF POTASSIUM AND BG LEVEL. ORDERS PLACED FOR PT. IV DEXTROSE GIVEN, BG RECHECKED AFTER 15 MINUTES AND AT 127. RESIDENT NOTIFIED. POTASSIUM RUNNING THROUGH IV PER ORDER.
--- NOTE | 2024-04-30 04:48 | NUR ---
UPDATE THIS RN RETURNED FROM LUNCH AND WENT TO CHECK ON PT. PT SITTING UP AT EDGE OF BED WITH PCT'S IN ROOM. PT STATED "I WANT SOMEONE NORMAL IN THIS ROOM" WHEN ASKED WHAT SHE MEANT PT STATED "SOMEONE WHO WILL LET ME LEAVE" I ADVISED PT THAT IT WAS EARLY IN THE MORNING AND THAT THE DOCTOR WOULD COME BY IN THE MORNING TO DISCUSS THE PLAN OF CARE. PT THEN STATED THAT SHE WANTED TO "GATHER HER THINGS AND GET READY TO LEAVE" I ADVISED PT I WOULD HELP HER PACK HER THINGS BUT IT WAS NOT TIME TO GO HOME YET. PT GOT AGITITATED AND STATED " I DONT NEED YOUR HELP, WHY DO YOU WANT TO CONTROL ME" I ADVISED PT THAT WE WERE TRYING TO HELP HER. I EDUCATED PT ON CORDS/WIRES ATTACHED TO HER AND WHAT THEY WERE FOR. PT CALMED DOWN AFTER THIS. HELPED PT BACK TO BED. BED ALARM ON.
--- NOTE | 2024-04-30 05:56 | NUR ---
SHIFT SUMMARY PT ALERT, ORIENTED TO NAME/, PLACE, AND YEAR. PT CONFUSED AT TIMES. SHE IS COOPERATIVE TO CARE BUT GETS AGITATED AND HARD TO REDIRECT AT TIMES. PT DOES NOT CALL, BED ALARM ON. IN A PACED RHYTHM, 60'S, DENIES CP/PRESSURE, NUMB/TINGLING, SBP STABLE. 02 >92% ON RA, DENIES SOB. MONTENEGRO CATH IN PLACE, DRAINING TO GRAVITY. PT HAS A WOUND ON THE LLE, PT RIPPED DRESSING OFF. WOUND DRESSING CHANGED PER ORDERS. PT RESTING IN BED AT THIS TIME. WILL MONITOR PT AND REPORT TO ONCOMING RN.
[2024-04-30 08:06] VITALS: BP 116/68
--- NOTE | 2024-04-30 09:00 | NUR ---
dr loya in room. states plan for pt is to start eliquis bid and angiogram on thursday. states okay to eat per dr mullen.
[2024-04-30 09:04] LABS: BASOPHILS ABSOLUTE AUTO 0.05 K/mm3 (0.00-0.23); BASOPHILS PERCENT AUTO 1 % (0-2); EOSINOPHILS PERCENT AUTO 1 % (0-6); Hematocrit 31.4 % (33.0-51.0); Hemoglobin 9.6 g/dL (11.5-16.0); IMMATURE GRAN ABSOLUTE AUTO 0.02 K/mm3 (0.00-0.10); IMMATURE GRAN PERCENT AUTO 0 % (0-1); LYMPHOCYTES ABSOLUTE AUTO 1.11 K/mm3 (0.84-5.20); LYMPHOCYTES PERCENT AUTO 16 % (21-46); MONOCYTES ABSOLUTE AUTO 0.74 K/mm3 (0.16-1.47); MONOCYTES PERCENT AUTO 11 % (4-13); Mean Corpuscular HGB 24.9 pg (26.0-34.0); Mean Corpuscular HGB Conc 30.6 g/dL (31.5-36.5); Mean Corpuscular Volume 82 fL (80-100); NEUTROPHILS ABSOLUTE AUTO 4.91 K/mm3 (1.96-9.15); NEUTROPHILS PERCENT AUTO 71 % (41-73); NRBC ABSOLUTE 0.03 K/mm3 (0.00-0.02); NRBC Auto 0.4 /100 WBC (0.0-0.2); Platelet Count 380 K/mm3 (150-400); RDW Coefficient Variation 20.5 % (11.7-14.2); Red Blood Cell Count 3.85 M/mm3 (3.80-5.20); White Blood Cell Count 6.93 K/mm3 (4.00-11.30)
[2024-04-30 09:16] LABS: Albumin, Blood 3.1 g/dL (3.4-5.0); Anion Gap 13 mmol/L (3-11); Blood Urea Nitrogen 18 mg/dL (8-24); CO2, Blood 25 mmol/L (21-32); Calcium, Blood 8.7 mg/dL (8.5-10.1); Chloride, Blood 107 mmol/L (98-108); Creatinine, Blood 1.06 mg/dL (0.40-1.00); Glomerular Filtration Rate 58 (60-); Glucose, Blood 136 mg/dL (70-99); Phosphorus, Blood 2.4 mg/dL (2.5-4.9); Potassium, Blood 3.5 mmol/L (3.5-5.5); Sodium, Blood 141 mmol/L (136-145)
[2024-04-30] MEDS ORDERED: Potassium Phos/Sodium Phos 250 MG PACK PO ONE (09:40)
[2024-04-30 11:59] VITALS: BP 104/62
[2024-04-30 15:38] VITALS: BP 124/70
--- NOTE | 2024-04-30 16:58 | NUR ---
PT UP AND INCREASED AGITATION. WANTS TO TO HOME, OUTSIDE. CALLED DR MATT, NO NEW ORDERS
[2024-04-30] MEDS ORDERED: Melatonin 5 MG Tablet PO PRN (17:00)
[2024-04-30] MEDS ORDERED: Potassium Chloride 20 MEQ TabCR PO SCH (17:00)
--- NOTE | 2024-04-30 17:46 | NUR ---
PT MOSTLY PLEASANT THIS DAY. BECAME IRRITABLE AND NOT WELL DIRECTABLE THIS SANTANA 1629. DISCUSSED WITH DR MATT. MELATONIN IS TO BE AVAIL THIS SANTANA. PT GOT SHOWER TODAY. AMBULATES MIN ASST FWW. DR REED IN THIS AM. EXPECTING TO DO ANGIOGRAM ON THURSDAY. HE IS STARTING ELEQUIS TODAY. VERIFIED IS OKAY. CHANGED WOUND ON LEFT CALF TODAY PER ORDERS. NO OTHER NEW CONCERNS NOTED. BED IN LOW POSITION, CALL LITE IN REACH, BED ALARM ON FOR SAFETY
[2024-04-30 19:16] VITALS: BP 104/59
[2024-04-30] MEDS ORDERED: Apixaban 5 MG Tab PO SCH (21:00)
[2024-04-30 23:57] VITALS: BP 102/60
--- NOTE | 2024-05-01 01:09 | NUR ---
UPDATE PT WAS RECEIVING IV ABX CEFAZOLIN IN RIGHT FOREARM IV. WALKED INTO ROOM AND PTS IV HAD INFILTRATED. SMALL QUARTER SIZED BUBBLE. SPOKE WITH PHARMACIST, PER PHARMACY CALL PROVIDER TO COME LOOK IF SITE LOOKS BAD, ASPIRATE IF ABLE, PLACE DRY WARM COMPRESS AND ELEVATE ARM. SITE NOT RED AND ONLY SLIGHTLY SWOLLEN. ASPIRATED CONTENT FROM ARM. SITE WRAPPED WITH COBAN AND GAUZE, WARM COMPRESS APPLIED AND ARM ELEVATED. PER PT ARM SORE BUT FEELS BETTER AFTER WARM COMPRESS.
[2024-05-01 03:37] VITALS: BP 123/67
[2024-05-01 04:01] LABS: BASOPHILS ABSOLUTE AUTO 0.05 K/mm3 (0.00-0.23); BASOPHILS PERCENT AUTO 1 % (0-2); EOSINOPHILS ABSOLUTE AUTO 0.14 K/mm3 (0.00-0.68); EOSINOPHILS PERCENT AUTO 2 % (0-6); Hematocrit 31.4 % (33.0-51.0); Hemoglobin 9.2 g/dL (11.5-16.0); IMMATURE GRAN ABSOLUTE AUTO 0.03 K/mm3 (0.00-0.10); IMMATURE GRAN PERCENT AUTO 0 % (0-1); LYMPHOCYTES ABSOLUTE AUTO 2.42 K/mm3 (0.84-5.20); LYMPHOCYTES PERCENT AUTO 28 % (21-46); MONOCYTES ABSOLUTE AUTO 1.09 K/mm3 (0.16-1.47); MONOCYTES PERCENT AUTO 13 % (4-13); Mean Corpuscular HGB 24.4 pg (26.0-34.0); Mean Corpuscular HGB Conc 29.3 g/dL (31.5-36.5); Mean Corpuscular Volume 83 fL (80-100); NEUTROPHILS ABSOLUTE AUTO 4.94 K/mm3 (1.96-9.15); NEUTROPHILS PERCENT AUTO 57 % (41-73); NRBC ABSOLUTE 0.03 K/mm3 (0.00-0.02); NRBC Auto 0.3 /100 WBC (0.0-0.2); Platelet Count 354 K/mm3 (150-400); RDW Coefficient Variation 20.9 % (11.7-14.2); RDW Standard Deviation 59.1 fL (35.1-46.3); Red Blood Cell Count 3.77 M/mm3 (3.80-5.20); White Blood Cell Count 8.67 K/mm3 (4.00-11.30)
[2024-05-01 04:19] LABS: Anion Gap 11 mmol/L (3-11); Blood Urea Nitrogen 18 mg/dL (8-24); Bun/Creatinine Ratio 14.9 (12.0-20.0); CO2, Blood 23 mmol/L (21-32); Calcium, Blood 8.5 mg/dL (8.5-10.1); Chloride, Blood 109 mmol/L (98-108); Creatinine, Blood 1.21 mg/dL (0.40-1.00); Glomerular Filtration Rate 49 (60-); Glucose, Blood 148 mg/dL (70-99); Phosphorus, Blood 2.6 mg/dL (2.5-4.9); Potassium, Blood 3.8 mmol/L (3.5-5.5); Sodium, Blood 139 mmol/L (136-145)
--- NOTE | 2024-05-01 05:26 | NUR ---
SHIFT SUMMARY PT ALERT, ORIENTED X2-3. PT ABLE TO STATE NAME/, BUT INTERMITTENT CONFUSION ON WHERE SHE IS AND WHY SHE IS HERE. PT CALM AT START OF SHIFT BUT GETS AGITATED EASILY AND RIPS HER TELE STICKERS OFF. PT O2 >92% ON RA, DENIES SOB. HR IN THE 60'S, PACED RHYTHM, DENIES CP/PRESSURE, NUMB/TINGLING, SBP STABLE. NEW IV PLACED IN THE RIGHT FOREARM, PT TOLERATED WELL. PT INTERMITTENTLY AGITATED T/O NIGHT AND WAKES UP TRYING TO GET OUT OF BED WITHOUT CALLING. PT UNABLE TO SLEEP WELL, PRN MELATONIN GIVEN AND PT HAS BEEN ABLE TO REST. PT RESTING IN BED AT THIS TIME. WILL MONITOR PT AND REPORT TO ONCOMING RN.
[2024-05-01 07:36] VITALS: BP 109/74
[2024-05-01 11:12] VITALS: BP 104/74
[2024-05-01] MEDS ORDERED: OLANZapine 5 MG Tab PO PRN (15:30)
[2024-05-01 15:37] VITALS: BP 106/69
--- NOTE | 2024-05-01 18:39 | NUR ---
SHIFT SUMMARY NO ACUTE CHANGES THIS SHIFT. PT ALERT TO SELF, INTERMITTENT CONFUSION. SP02>90% ON RA. TELEMETRY SHOWS PACED, HR 60'S. DENIES PAIN. MONTENEGRO CATHETER WITH YELLOW URINE TO GRAVITY. NO BM THIS SHIFT. PULLED IV OUT THIS AM. REPLACED WITH POWERGLIDE AMY. ENCOURAGED PT TO COLOR/CROSSWORDS, PT REFUSED. PT UP TO RECLINER THIS SHIFT. NAPPED IN AFTERNOON. PT ABLE TO SPEAK TO ON PHONE. NPO AT MIDNIGHT FOR ANGIO IN AM. CALL LIGHT IN REACH.
[2024-05-01 21:13] VITALS: BP 107/78
[2024-05-02] VITALS (15 sets, daily range): BP systolic 120–141; BP diastolic 63–90
[2024-05-02 04:53] LABS: BASOPHILS ABSOLUTE AUTO 0.05 K/mm3 (0.00-0.23); BASOPHILS PERCENT AUTO 1 % (0-2); EOSINOPHILS ABSOLUTE AUTO 0.26 K/mm3 (0.00-0.68); EOSINOPHILS PERCENT AUTO 3 % (0-6); Hematocrit 27.8 % (33.0-51.0); Hemoglobin 8.2 g/dL (11.5-16.0); IMMATURE GRAN ABSOLUTE AUTO 0.02 K/mm3 (0.00-0.10); IMMATURE GRAN PERCENT AUTO 0 % (0-1); LYMPHOCYTES ABSOLUTE AUTO 2.09 K/mm3 (0.84-5.20); LYMPHOCYTES PERCENT AUTO 27 % (21-46); MONOCYTES ABSOLUTE AUTO 0.89 K/mm3 (0.16-1.47); MONOCYTES PERCENT AUTO 12 % (4-13); Mean Corpuscular HGB 24.6 pg (26.0-34.0); Mean Corpuscular HGB Conc 29.5 g/dL (31.5-36.5); Mean Corpuscular Volume 83 fL (80-100); Mean Platelet Volume 11.7 fL (9.1-12.4); NEUTROPHILS PERCENT AUTO 57 % (41-73); Platelet Count 301 K/mm3 (150-400); RDW Coefficient Variation 21.7 % (11.7-14.2); RDW Standard Deviation 61.2 fL (35.1-46.3); Red Blood Cell Count 3.34 M/mm3 (3.80-5.20); White Blood Cell Count 7.71 K/mm3 (4.00-11.30)
--- NOTE | 2024-05-02 04:57 | NUR ---
SHIFT SUMMARY: NEURO: PT ALERT X4. FORGETFUL WHEN WAKING. LUNGS: CLEAR/DIMINISHED ON RA. CARDIAC: ON TELE, PACED. +1BLE EDEMA. GI/: MONTENEGRO REMOVED 444. ORANGE CAST AND SEDIMENT IN TUBING. SKIN: WOUND DRESSINGS CHANGED AT 05/01/24. LEGS WWASHED WITH CHG. SEE PHOTO IN CHART- SOFT BLACK NECROTIC ESCHAR TO LOWER LEFT CALF.
[2024-05-02 05:18] LABS: Bun/Creatinine Ratio 16.4 (12.0-20.0); Calcium, Blood 8.5 mg/dL (8.5-10.1); Creatinine, Blood 1.4 mg/dL (0.40-1.00); Potassium, Blood 3.9 mmol/L (3.5-5.5)
[2024-05-02] MEDS ORDERED: NS 1,000 ML IV SCH (08:55)
--- NOTE | 2024-05-02 10:51 | NUR ---
AM NOTE: RECEIVED BEDSIDE SHIFT REPORT THIS AM FROM ROGER TONEY. PT ALERT TO STAFF IN ROOM, ORIENTED TO SELF, LOCATION, SITUATION BUT STATES "2005" WHEN ASKED WHAT THE DATE IS. PT DENIES SOB, O2 SATS >93% ON RA. PT DENIES CP, SR OR PACED ON MONITOR W/RATE IN 60s. PT CURRENTLY NPO, PENDING PROCEDURE IN CLIENT SERVICES SPECIALIST THIS AFTERNOON. INDWELLING MONTENERGO CATHETER REMOVED APPROX 0430 THIS AM, PT HAS BEEN UP TO BSC W/ONE POST REMOVAL VOID SO FAR. WOUNDS WERE CLEANED AND REDRESSED ON NOC SHIFT W/NEW PICTURES PLACED IN CHART, DRESSINGS CONTIUE C/D/I. PT CURRENTLY RESTING IN BED, BED ALARM ON, CALL BUTTON IN REACH.
[2024-05-02] MEDS ORDERED: Heparin Sodium 1000 Units/ML 10ML MDV ONE ×2 (12:27→12:38)
[2024-05-02] MEDS ORDERED: Verapamil HCL 2.5 MG/ML 2ML Injection ONE (12:27)
[2024-05-02] MEDS ORDERED: NS 250 ML IV ONE (12:28)
[2024-05-02] MEDS ORDERED: NS 1,000 ML IV ONE ×2 (12:28→12:34)
[2024-05-02] MEDS ORDERED: Nitroglycerin 2 MG/20 ML BTL ONE (12:28)
[2024-05-02] MEDS ORDERED: Midazolam HCl 1MG / ML 2ML Vial ONE (12:34)
[2024-05-02] MEDS ORDERED: FentaNYL Citrate 50 MCG/ML 2 ML Injection ONE (12:34)
--- NOTE | 2024-05-02 12:55 | NUR ---
PT TO ELECTRICAL MAINTENANCE TECHNICIAN FOR PROCEDURE
[2024-05-02] MEDS ORDERED: DAPTOmycin 420 MG in NS 50 ML IV SCH (18:00)
--- NOTE | 2024-05-02 18:30 | NUR ---
SHIFT SUMMARY: PT RETURNS F/BUSINESS LAWYER APPRX 1500 THIS AFTERNOON, R FEMORAL SITE HEALING WNL. PT SLOWLY PROGRESSED FROM LYING FLAT TO HEAD ELEVATED, RECOVERY VITALS CONTINUE. NO ACUTE CHANGE TO PT NEUROLOGICAL OR RESPIRATORY STATUS SINCE AM NOTE. TWO POST MONTENEGRO REMOVAL VOIDS THIS SHIFT, ONE INCONTINENT AND NOT MEASURED. WOUND CARE COMPLETED THIS SHIFT, PROVIDER TO BEDSIDE AND EVALUATED WOUNDS W/NO CHANGE TO WOUND CARE BUT THERE WAS A CHANGE TO ABX ORDERS. PT CURRENTLY RESTING IN BED W/MEAL TRAY AND CALL LIGHT IN REACH.
[2024-05-03 03:39] VITALS: BP 134/73
[2024-05-03 05:08] LABS: BASOPHILS ABSOLUTE AUTO 0.06 K/mm3 (0.00-0.23); BASOPHILS PERCENT AUTO 1 % (0-2); EOSINOPHILS ABSOLUTE AUTO 0.24 K/mm3 (0.00-0.68); EOSINOPHILS PERCENT AUTO 3 % (0-6); Hematocrit 27.8 % (33.0-51.0); Hemoglobin 8.3 g/dL (11.5-16.0); IMMATURE GRAN ABSOLUTE AUTO 0.03 K/mm3 (0.00-0.10); IMMATURE GRAN PERCENT AUTO 0 % (0-1); LYMPHOCYTES ABSOLUTE AUTO 1.23 K/mm3 (0.84-5.20); LYMPHOCYTES PERCENT AUTO 16 % (21-46); MONOCYTES ABSOLUTE AUTO 0.74 K/mm3 (0.16-1.47); MONOCYTES PERCENT AUTO 10 % (4-13); Mean Corpuscular HGB 25.2 pg (26.0-34.0); Mean Corpuscular HGB Conc 29.9 g/dL (31.5-36.5); Mean Corpuscular Volume 85 fL (80-100); Mean Platelet Volume 11.4 fL (9.1-12.4); NEUTROPHILS ABSOLUTE AUTO 5.31 K/mm3 (1.96-9.15); NEUTROPHILS PERCENT AUTO 70 % (41-73); Platelet Count 263 K/mm3 (150-400); RDW Coefficient Variation 22.1 % (11.7-14.2); RDW Standard Deviation 63.4 fL (35.1-46.3); Red Blood Cell Count 3.29 M/mm3 (3.80-5.20); White Blood Cell Count 7.61 K/mm3 (4.00-11.30)
[2024-05-03 05:30] LABS: Albumin, Blood 2.8 g/dL (3.4-5.0); Albumin/Globulin Ratio 0.9 (0.8-1.8); Bilirubin, Total 0.7 mg/dL (0.1-1.0); Calcium, Blood 8.1 mg/dL (8.5-10.1); Creatinine, Blood 1.31 mg/dL (0.40-1.00); Potassium, Blood 3.8 mmol/L (3.5-5.5); Total Protein, Blood 5.8 g/dL (6.4-8.2)
[2024-05-03] MEDS ORDERED: Furosemide 10 MG/ML 4ML Vial IV SCH (06:00)
--- NOTE | 2024-05-03 07:23 | NUR ---
SHIFT SUMMARY PATIENT ALERT AND ORIENTED X 2-3. FORGETFUL, FOLLOWS DIRECTIONS WELL AND CONVERSES APPROPRIATELY WITH STAFF. UNSURE OF DATE AND OCCASIONALLY PLACE. HAD NO COMPLAINTS OF PAIN OR SHORTNESS OF BREATH, ON ROOM AIR WITH SPO2 >90%. VITAL SIGNS STABLE. HAD DIFFICULTY WITH URINATING OVERNIGHT. WILL CONTINUE TO MONITOR. CALL LIGHT WITHIN REACH.
[2024-05-03 07:49] VITALS: BP 150/97
[2024-05-03] MEDS ORDERED: Metoprolol Succinate 25 MG TABCR PO SCH (09:00)
[2024-05-03] MEDS ORDERED: Arginine/Glutamine/Calcium Hmb 1 Packet PO SCH (09:00)
[2024-05-03 11:49] VITALS: BP 120/78
[2024-05-03 16:12] VITALS: BP 115/75
--- NOTE | 2024-05-03 17:56 | NUR ---
SHIFT SUMMARY: PT HAS BEEN ALERT, ORIENTED x2-3, FORGETFUL OF SOME SITUATION AND CONFUSED RE: DATE/YEAR, PT STATES "2026" WHEN ASKED DATE. PT HAS BEEN COOPERATIVE W/CARE AND ABLE TO COMMUNICATE NEEDS. PT DENIES SOB, O2 SATS >93% ON RA. PT DENIES CP, SR OR PACED RHYTHM ON MONITOR, RATE 60s, VSS. R FEMORAL SITE CONTINUES HEALING WNL. PT OOB TO RECLINER FOR MEALS. PT IS SBA TO BSC, SOMETIMES NOT ABLE TO VOID ON FIRST ATTEMPT BUT HAS BEEN CONTINENT AND ABLE TO VOID ON 2ND ATTEMPT ON BSC. WOUND CARE COMPLETED THIS SHIFT, ABX THERAPY CONTINUES. PT WORKED WITH PHYSICAL THERAPY TODAY, TOLERATED WELL. BED ALARM CONTINUES FOR SAFETY. CALL LIGHT IN REACH.
[2024-05-03 20:56] VITALS: BP 119/77
[2024-05-03 23:10] VITALS: BP 122/57
--- NOTE | 2024-05-03 23:16 | NUR ---
EDA HART, REPORTED TO THIS RN THAT THE PATIENT WAS AGITATED AND WANTING TO GO HOME. THIS RN THEN WENT TO GIVE THE PATIENT HER PRN ZYPREXA FOR AGITATION AND FOUND THAT THE PATIENT HAD TAKEN HER IV OUT AND GOWN OFF AND WAS TRYING TO TAKE HER TELEMETRY WIRES OFF WELL. WHEN ASKED WHAT SHE WAS TRYING TO DO, THE PATIENT STATED THAT SHE WAS GOING HOME AND WAS "TIRED OF PLAYING THESE GAMES." AT THIS TIME IS REFUSING TO TAKE ANY MEDICATION FROM THIS RN. PATIENT WAS DRESSED AND HANDED HER PERSONAL SWEATSHIRT. RESIDENTIAL YOUTH COUNSELOR ATTEMPTED TO ADMINISTER MEDICATION WELL WITH NO SUCCESS. PATIENT NOW RESTING AND ATTEMPTING TO SLEEP.
[2024-05-04 03:42] VITALS: BP 138/61
[2024-05-04 03:45] LABS: BASOPHILS ABSOLUTE AUTO 0.05 K/mm3 (0.00-0.23); BASOPHILS PERCENT AUTO 1 % (0-2); EOSINOPHILS PERCENT AUTO 2 % (0-6); Hemoglobin 8.3 g/dL (11.5-16.0); IMMATURE GRAN ABSOLUTE AUTO 0.03 K/mm3 (0.00-0.10); IMMATURE GRAN PERCENT AUTO 0 % (0-1); LYMPHOCYTES ABSOLUTE AUTO 1.67 K/mm3 (0.84-5.20); LYMPHOCYTES PERCENT AUTO 20 % (21-46); MONOCYTES PERCENT AUTO 10 % (4-13); Mean Corpuscular HGB 25.5 pg (26.0-34.0); Mean Corpuscular HGB Conc 30.7 g/dL (31.5-36.5); Mean Corpuscular Volume 83 fL (80-100); Mean Platelet Volume 11.6 fL (9.1-12.4); NEUTROPHILS ABSOLUTE AUTO 5.42 K/mm3 (1.96-9.15); NEUTROPHILS PERCENT AUTO 66 % (41-73); Platelet Count 249 K/mm3 (150-400); RDW Coefficient Variation 22.5 % (11.7-14.2); RDW Standard Deviation 61.2 fL (35.1-46.3); Red Blood Cell Count 3.26 M/mm3 (3.80-5.20); White Blood Cell Count 8.17 K/mm3 (4.00-11.30)
[2024-05-04 04:11] LABS: Alanine Aminotransfer (ALT/SGP <6 U/L (12-78); Albumin, Blood 2.9 g/dL (3.4-5.0); Albumin/Globulin Ratio 0.9 (0.8-1.8); Alk Phos 51 U/L (50-136); Anion Gap 9 mmol/L (3-11); Aspartate Aminotrans (AST/SGOT 18 U/L (12-37); Bilirubin, Total 0.6 mg/dL (0.1-1.0); Blood Urea Nitrogen 29 mg/dL (8-24); CO2, Blood 23 mmol/L (21-32); Calcium, Blood 8.3 mg/dL (8.5-10.1); Chloride, Blood 110 mmol/L (98-108); Creatinine, Blood 1.21 mg/dL (0.40-1.00); Globulin, Blood 3.2 g/dL (2.2-4.0); Glomerular Filtration Rate 49 (60-); Glucose, Blood 144 mg/dL (70-99); Potassium, Blood 3.9 mmol/L (3.5-5.5); Sodium, Blood 138 mmol/L (136-145); Total Protein, Blood 6.1 g/dL (6.4-8.2)
--- NOTE | 2024-05-04 07:21 | NUR ---
SHIFT SUMMARY PATIENT CONTINUED TO BE CONFUSED AND PARANOID THE REST OF THE NIGHT CLAIMING THAT SHE HAS BEEN KIDNAPPED AND THAT HER WAS LOOKING FOR HER. SHE WAS UNABLE TO URINATE AND ULTIMATELY AGREED TO LET THIS RN STRAIGHT CATH HER AFTER SHE HAD A BLADDER SCAN OF ALMOST 500MLS. SHE HAD NO COMPLAINTS OF PAIN OR SHORTNESS OF BREATH OVERNIGHT. VITAL SIGNS STABLE. SHE DID NOT SLEEP OVERNIGHT. WILL CONTINUE TO MONITOR. CALL LIGHT WITHIN REACH.
[2024-05-04 08:47] VITALS: BP 129/75
[2024-05-04] MEDS ORDERED: ELIQUIS5 M2 PO (12:20)
[2024-05-04] MEDS ORDERED: JUVEN PACKET1 EAC3 PO (12:20)
[2024-05-04] MEDS ORDERED: VISBIOME 112.51 EACH PO (12:21)
[2024-05-04] MEDS ORDERED: PANT40 PO (12:21)
[2024-05-04] MEDS ORDERED: METO25ER PO (12:21)
[2024-05-04] MEDS ORDERED: DOXY100 PO (12:22)
[2024-05-04] MEDS ORDERED: AMOCLA875 PO (12:22)
[2024-05-04 12:52] VITALS: BP 126/62
--- NOTE | 2024-05-04 13:02 | NUR ---
this rn attempted to contact about discharge orders, no answer.
--- NOTE | 2024-05-04 16:30 | NUR ---
DISCHARGE UPDATE DISCHARGE PACKET TGONE OVER WITH PT AT 1441. PT DISCAHRGED AT 1625 VIA WHEELCHAIR AND ON RA. PT ABLE TO TRANSFER TO WHEELCHAIR WITH MINIMAL ASSISTANCE, TOLERATED WELL. PERSONAL BELAONGINGS WITH PT AT TIME OF DISCHARGE. DISCHARGE PACKET WITH PT AT TIME OF DISCHARGE.
== END 2024-05-04 16:30 | disposition home or self-care (01) | DRG 981 ==
LOC: PCU 17:36
PROVIDERS: Internal Medicine; Internal Medicine Gastroenterology; Student in an Organized Health Care Education/Training Program; ADMIT Family Medicine
PROC: 0DJ08ZZ Inspection of Upper Intestinal Tract, Via Natural or Artificial Opening Endoscopic (ICD-10-PCS; 2024-04-27)
PROC: 0DBJ8ZX Excision of Appendix, Via Natural or Artificial Opening Endoscopic, Diagnostic (ICD-10-PCS; principal; 2024-04-29 14:00)
PROC: 0DBC8ZX Excision of Ileocecal Valve, Via Natural or Artificial Opening Endoscopic, Diagnostic (ICD-10-PCS; 2024-04-29 14:00)
PROC: B41F1ZZ Fluoroscopy of Right Lower Extremity Arteries using Low Osmolar Contrast (ICD-10-PCS; 2024-05-02)
PROC: B2111ZZ Fluoroscopy of Multiple Coronary Arteries using Low Osmolar Contrast (ICD-10-PCS; 2024-05-02)
PROC: 4A023N8 Measurement of Cardiac Sampling and Pressure, Bilateral, Percutaneous Approach (ICD-10-PCS; 2024-05-02)
DX: I13.0 Hypertensive heart and chronic kidney disease with heart failure and stage 1 through stage 4 chronic kidney disease, or unspecified chronic kidney disease (principal); I50.23 Acute on chronic systolic (congestive) heart failure; K92.1 Melena; D62 Acute posthemorrhagic anemia; L03.115 Cellulitis of right lower limb; L03.116 Cellulitis of left lower limb; N17.9 Acute kidney failure, unspecified; L97.829 Non-pressure chronic ulcer of other part of left lower leg with unspecified severity; L97.819 Non-pressure chronic ulcer of other part of right lower leg with unspecified severity; Z66 Do not resuscitate; I48.0 Paroxysmal atrial fibrillation; N18.9 Chronic kidney disease, unspecified; I70.201 Unspecified atherosclerosis of native arteries of extremities, right leg; K44.9 Diaphragmatic hernia without obstruction or gangrene; D50.9 Iron deficiency anemia, unspecified; D63.1 Anemia in chronic kidney disease; D75.839 Thrombocytosis, unspecified; I25.10 Atherosclerotic heart disease of native coronary artery without angina pectoris; E66.9 Obesity, unspecified; G25.81 Restless legs syndrome; E11.22 Type 2 diabetes mellitus with diabetic chronic kidney disease; G47.33 Obstructive sleep apnea (adult) (pediatric); E78.5 Hyperlipidemia, unspecified; M54.9 Dorsalgia, unspecified; G89.29 Other chronic pain; Z95.0 Presence of cardiac pacemaker; Z90.49 Acquired absence of other specified parts of digestive tract; Z87.891 Personal history of nicotine dependence; Z88.8 Allergy status to other drugs, medicaments and biological substances; Z79.899 Other long term (current) drug therapy; Z79.02 Long term (current) use of antithrombotics/antiplatelets; I25.2 Old myocardial infarction; Z86.19 Personal history of other infectious and parasitic diseases; K64.4 Residual hemorrhoidal skin tags; I27.22 Pulmonary hypertension due to left heart disease; Z68.29 Body mass index [BMI] 29.0-29.9, adult
CPT/HCPCS: 36415; 36430; 51701; 51702; 76937; 80048; 80053; 80069; 82272; 82550; 82607; 82728; 82746; 82947; 83540; 83550; 83735; 83880; 84145; 85014; 85018; 85025; 86141; 86850; 86900; 86901; 86923; 88305; 92610; 92978; 92979; 93308; 93321; 93460; 93922; 93925; 93970; 94660; 94760; 94762; 97110; 97161; 97165; 97530; 99152; 99153; A9270; C1751; C1753; C1760; C1769; C1887; C1894; C8929; J0690; J0878; J1644; J1940; J2003; J2250; J2470; J2704; J2916; J3010; J3480; J7030; J7040; J7050; J7120; P9016; Q9957; Q9967

== ENCOUNTER → 2024-05-20 | Outpatient (CLI) | payer OTHER ==
[~2024-05-20] MED LIST changes: +AMOCLA875 PO; +ATOR40TA PO; +CLOP75 PO; +DOXE25 PO; +DOXY100 PO; +ELIQUIS5 M2 PO; +FARXIGA10 MG PO; +FURO40 PO; +JUVEN PACKET1 EAC3 PO; +K-TAB ER20 ME1 PO; +MEDR10 PO; +METO25ER PO; +PANT40 PO; +Ropinirole HCl1 MG PO; +VISBIOME 112.51 EACH PO
== END ==
LOC: LAB SHORT 14:58 → LAB 14:58
DX: I69.354 Hemiplegia and hemiparesis following cerebral infarction affecting left non-dominant side (principal)
CPT/HCPCS: 87070; 87075; 87076; 87077; 87186; 87205

== ENCOUNTER 2024-05-31 08:50 | Day surgery (SDC) | payer OTHER ==
[~2024-05-31] VITALS: Ht 167.6 cm; Wt 77.0 kg
[2024-05-31] VITALS (12 sets, daily range): BP systolic 94–150; BP diastolic 61–75
[2024-05-31] MEDS ORDERED: Acetaminophen 325 MG TABLET ONE (09:30)
[2024-05-31] MEDS ORDERED: NS 250 ML IV ONE (10:38)
[2024-05-31] MEDS ORDERED: NS 1,000 ML IV ONE ×2 (10:38→10:45)
[2024-05-31] MEDS ORDERED: Heparin Sodium 1000 Units/ML 10ML MDV ONE (10:38)
[2024-05-31] MEDS ORDERED: FentaNYL Citrate 50 MCG/ML 2 ML Injection ONE ×2 (10:44→10:48)
[2024-05-31] MEDS ORDERED: Midazolam HCl 1MG / ML 2ML Vial ONE ×2 (10:44→10:48)
--- NOTE | 2024-05-31 12:05 | NUR ---
ASSUMED CARE OF PT POST PROCEDURE. PT DROWSY, BUT EASILY ROUSABLE; DENIES PAIN POST PROCEDURE. MONITOR A PACED 60'S, B/P 144/73, SPO2 100 % RA. L GROIN SITE NO SWELLING/HEMATOMA, TEGADERM DRSG UNCHANGED.
--- NOTE | 2024-05-31 12:50 | NUR ---
LEFT FEMORAL GROIN SITE SOFT NON-TENDER WITH NO HEMATOMA, NO PULSATILE BLEEDING AND INTACT DRESSING. CALL LIGHT IN REACH.
--- NOTE | 2024-05-31 13:05 | NUR ---
HOB UP TO 45 DEGREES.
--- NOTE | 2024-05-31 13:15 | NUR ---
PT HOB ELEVATED TO 30 DEGREES, SITE REMAINS UNCHANGED; TAKING SIPS OF FLUID AND EATING.
--- NOTE | 2024-05-31 13:15 | NUR ---
NO CHANGES TO LEFT FEM GROIN SITE.
--- NOTE | 2024-05-31 15:37 | NUR ---
DISCHARGE INSTRUCTIONS AND DISCHARGE MEDICATIONS ALONG WITH HOME CARE INSTRUCTIONS ALL REVIEWED WITH PATIENT AND GIVEN COPIES IN FOLDER, IV REMOVED, SITE TO GROIN REMAINS INTACT, MINIMAL OLD DRAINAGE NOTED AND NO HEMATOMA OR CONCERNS OTHERWISE. ASSISTED TO WHEELCHAIR, VOIDED, ASSISTED TO GET DRESSED, SITE UNCHANGED, TAKEN BY W/C TO ENTRANCE AND MET FAMILY/FRIENDS WHO WERE EXPECTING PATIENT, PATIENT AND FAMILY APPRECIATED CARE AND LEFT AT 1530.
== END 2024-05-31 15:30 | disposition home or self-care (01) ==
LOC: MHTC 08:50
DX: E11.51 Type 2 diabetes mellitus with diabetic peripheral angiopathy without gangrene (principal); I70.235 Atherosclerosis of native arteries of right leg with ulceration of other part of foot; L97.512 Non-pressure chronic ulcer of other part of right foot with fat layer exposed; I25.10 Atherosclerotic heart disease of native coronary artery without angina pectoris; Z87.891 Personal history of nicotine dependence; Z79.02 Long term (current) use of antithrombotics/antiplatelets; Z79.01 Long term (current) use of anticoagulants; Z79.899 Other long term (current) drug therapy; Z88.6 Allergy status to analgesic agent
CPT/HCPCS: 36246; 75625; 75716; 75774; 76937; 99152; 99153; A9270; C1760; C1769; C1887; C1894; J1644; J2250; J3010; J7030; J7050; Q9967

== ENCOUNTER → 2024-06-06 | Outpatient (CLI) | payer OTHER ==
[2024-06-06 13:40] LABS: Hematocrit 39.3 % (33.0-51.0); Hemoglobin 12.2 g/dL (11.5-16.0); Mean Corpuscular HGB 26.3 pg (26.0-34.0); Mean Corpuscular Volume 85 fL (80-100); Mean Platelet Volume 12.4 fL (9.1-12.4); Platelet Count 258 K/mm3 (150-400); RDW Coefficient Variation 21.8 % (11.7-14.2); RDW Standard Deviation 66.8 fL (35.1-46.3); Red Blood Cell Count 4.64 M/mm3 (3.80-5.20); White Blood Cell Count 6.64 K/mm3 (4.00-11.30)
[2024-06-06 14:06] LABS: Albumin, Blood 4.1 g/dL (3.4-5.0); Albumin/Globulin Ratio 1.1 (0.8-1.8); Bilirubin, Total 0.5 mg/dL (0.1-1.0); Bun/Creatinine Ratio 11.8 (12.0-20.0); Calcium, Blood 10.1 mg/dL (8.5-10.1); Creatinine, Blood 1.61 mg/dL (0.40-1.00); Globulin, Blood 3.6 g/dL (2.2-4.0); Potassium, Blood 4.5 mmol/L (3.5-5.5); Total Protein, Blood 7.7 g/dL (6.4-8.2)
[2024-06-08 21:08] LABS: HEPATITIS C AB CIA INTERP Negative (Negative); HEPATITIS C ANTIBODY CIA INDEX 0.05 IV
== END ==
LOC: LAB 11:30 → LAB SHORT 11:30
PROVIDERS: Family Medicine
DX: I10 Essential (primary) hypertension (principal); E11.8 Type 2 diabetes mellitus with unspecified complications; K59.09 Other constipation; Z11.59 Encounter for screening for other viral diseases
CPT/HCPCS: 80053; 85027; 86803

== ENCOUNTER 2024-06-07 02:16 | Day surgery (SDC) | payer OTHER ==
[2024-06-07] MEDS ORDERED: Lidocaine HCl 4% Cream 5 GM ONE (13:47)
== END 2024-06-07 23:00 ==
LOC: WOUND 02:16
DX: E11.622 Type 2 diabetes mellitus with other skin ulcer (principal); L97.822 Non-pressure chronic ulcer of other part of left lower leg with fat layer exposed; I87.2 Venous insufficiency (chronic) (peripheral)
CPT/HCPCS: A9270; G0463

== ENCOUNTER → 2024-06-10 | Outpatient (CLI) | payer OTHER ==
[2024-06-10 14:48] LABS: Creatinine, Urine Random 68.1 mg/dL (27.00-270.00); Microalb/Creat Ratio UR, Rand 93.245 mg/g (0.000-30.000); Microalbumin, Random Urine 63.5 mg/L (0.000-20.000)
== END | disposition home or self-care (01) ==
LOC: LAB 08:40 → LAB SHORT 08:40
PROVIDERS: Family Medicine
DX: I10 Essential (primary) hypertension (principal)
CPT/HCPCS: 82043; 82570

== ENCOUNTER 2024-06-15 02:28 | Day surgery (SDC) | payer OTHER | END 2024-06-15 23:00 | disposition home or self-care (01) | LOC: WOUND 02:28 | DX: L97.222 Non-pressure chronic ulcer of left calf with fat layer exposed (principal); I87.2 Venous insufficiency (chronic) (peripheral); E11.9 Type 2 diabetes mellitus without complications | CPT/HCPCS: G0463 ==

== ENCOUNTER 2024-06-29 05:25 | Day surgery (SDC) | payer OTHER | END 2024-06-29 23:00 | disposition home or self-care (01) | LOC: WOUND 05:25 | DX: Z09 Encounter for follow-up examination after completed treatment for conditions other than malignant neoplasm (principal); I87.2 Venous insufficiency (chronic) (peripheral); E11.9 Type 2 diabetes mellitus without complications | CPT/HCPCS: G0463 ==

== ENCOUNTER 2024-11-05 12:04 | Inpatient (IN) | payer OTHER ==
[~2024-11-05] VITALS: Ht 165.1 cm; Wt 67.0 kg
[2024-11-05] VITALS (13 sets, daily range): BP systolic 100–130; BP diastolic 58–88
[2024-11-05 13:53] LABS: BASOPHILS ABSOLUTE AUTO 0.03 K/mm3 (0.00-0.23); BASOPHILS PERCENT AUTO 1 % (0-2); EOSINOPHILS ABSOLUTE AUTO 0.01 K/mm3 (0.00-0.68); EOSINOPHILS PERCENT AUTO 0 % (0-6); Hematocrit 19.4 % (33.0-51.0); IMMATURE GRAN ABSOLUTE AUTO 0.02 K/mm3 (0.00-0.10); IMMATURE GRAN PERCENT AUTO 0 % (0-1); LYMPHOCYTES ABSOLUTE AUTO 0.95 K/mm3 (0.84-5.20); LYMPHOCYTES PERCENT AUTO 17 % (21-46); MONOCYTES ABSOLUTE AUTO 0.56 K/mm3 (0.16-1.47); MONOCYTES PERCENT AUTO 10 % (4-13); Mean Corpuscular HGB Conc 28.9 g/dL (31.5-36.5); Mean Corpuscular Volume 76 fL (80-100); NEUTROPHILS ABSOLUTE AUTO 4.02 K/mm3 (1.96-9.15); NEUTROPHILS PERCENT AUTO 72 % (41-73); NRBC ABSOLUTE 0.00 K/mm3 (0.00-0.02); NRBC Auto 0.0 /100 WBC (0.0-0.2); Platelet Count 362 K/mm3 (150-400); RDW Coefficient Variation 15.4 % (11.7-14.2); RDW Standard Deviation 42.4 fL (35.1-46.3)
[2024-11-05 13:56] LABS: Hemoglobin 5.6 g/dL (11.5-16.0)
[2024-11-05 14:13] LABS: Alanine Aminotransfer (ALT/SGP 10.0 U/L (12-78); Albumin, Blood 4.1 g/dL (3.4-5.0); Albumin/Globulin Ratio 1.3 (0.8-1.8); Anion Gap 12.0 mmol/L (3-11); Aspartate Aminotrans (AST/SGOT 15.0 U/L (12-37); Bilirubin, Total 0.4 mg/dL (0.1-1.0); Blood Urea Nitrogen 21.0 mg/dL (8-24); CO2, Blood 24.0 mmol/L (21-32); Calcium, Blood 9.0 mg/dL (8.5-10.1); Chloride, Blood 108.0 mmol/L (98-108); Creatinine, Blood 1.38 mg/dL (0.40-1.00); Globulin, Blood 3.1 g/dL (2.2-4.0); Glucose, Blood 135.0 mg/dL (70-99); Potassium, Blood 3.5 mmol/L (3.5-5.5); Sodium, Blood 140.0 mmol/L (136-145); Total Protein, Blood 7.2 g/dL (6.4-8.2)
[2024-11-05 15:01] LABS: pH Blood Venous 7.49 (7.34-7.37)
[2024-11-05 15:21] LABS: Ethanol (Alcohol), Blood, Med <3 mg/dL; Thyroid Stimulating Hormone 2.960 uIU/mL (0.360-4.800)
[2024-11-05] MEDS ORDERED: NS 1,000 ML IV ONE (16:14)
[2024-11-05 16:42] LABS: Source, Urine Clean Catch
[2024-11-05 16:48] LABS: Bilirubin, Urine Neg (Neg); Glucose Qualitative, Urine Neg (Neg); Ketones, Urine Neg (Neg); Leukocyte Esterase, Urine 2+ (Neg); Protein, Urine Neg (Neg); Specific Gravity, Urine 1.010 (1.003-1.022); Urobilinogen, Urine NORM (Normal)
[2024-11-05 16:53] LABS: Color, Urine Yellow (P-Yellow)
[2024-11-05 16:56] LABS: Red Blood Cells, Urine Not Seen /hpf (0-2)
[2024-11-05 17:03] LABS: U Amphetamine Screen Not Detected; U Barbituate Screen Not Detected; U Benzodiazapine Screen Not Detected; U Buprenorphine Screen Not Detected; U Cannabinoids Screen Not Detected; U Cocaine Screen Not Detected; U Methadone Screen Not Detected; U Methamphetamine Screen Not Detected; U Opiates Screen Not Detected; U Oxycodone Screen Not Detected; U Phencyclidine Screen Not Detected
[2024-11-05] MEDS ORDERED: Pantoprazole Sodium 40 MG Injection IV STA (17:14)
[2024-11-05] MEDS ORDERED: NS 100 ML IV SCH (17:25)
[2024-11-05] MEDS ORDERED: NS 1,000 ML IV SCH (17:30)
[2024-11-05 18:46] LABS: Ferritin, Serum 7.0 ng/mL (8-252); Total Iron Binding Capacity 409.0 ug/dL (250-450)
[2024-11-06] VITALS (30 sets, daily range): BP systolic 97–133; BP diastolic 53–111
[2024-11-06 00:09] LABS: Hematocrit 25.5 % (33.0-51.0); Hemoglobin 8.4 g/dL (11.5-16.0)
[2024-11-06 05:22] LABS: BASOPHILS ABSOLUTE AUTO 0.09 K/mm3 (0.00-0.23); BASOPHILS PERCENT AUTO 2 % (0-2); EOSINOPHILS ABSOLUTE AUTO 0.05 K/mm3 (0.00-0.68); EOSINOPHILS PERCENT AUTO 1 % (0-6); Hematocrit 27.4 % (33.0-51.0); Hemoglobin 8.8 g/dL (11.5-16.0); IMMATURE GRAN ABSOLUTE AUTO 0.03 K/mm3 (0.00-0.10); IMMATURE GRAN PERCENT AUTO 1 % (0-1); LYMPHOCYTES ABSOLUTE AUTO 1.55 K/mm3 (0.84-5.20); LYMPHOCYTES PERCENT AUTO 26 % (21-46); MONOCYTES ABSOLUTE AUTO 0.82 K/mm3 (0.16-1.47); MONOCYTES PERCENT AUTO 14 % (4-13); Mean Corpuscular HGB Conc 32.1 g/dL (31.5-36.5); Mean Corpuscular Volume 78 fL (80-100); NEUTROPHILS ABSOLUTE AUTO 3.35 K/mm3 (1.96-9.15); NEUTROPHILS PERCENT AUTO 57 % (41-73); NRBC ABSOLUTE 0.00 K/mm3 (0.00-0.02); NRBC Auto 0.0 /100 WBC (0.0-0.2); Platelet Count 296 K/mm3 (150-400); RDW Coefficient Variation 15.9 % (11.7-14.2); RDW Standard Deviation 44.0 fL (35.1-46.3)
[2024-11-06 05:42] LABS: Anion Gap 13.0 mmol/L (3-11); Blood Urea Nitrogen 17.0 mg/dL (8-24); CO2, Blood 22.0 mmol/L (21-32); Calcium, Blood 8.8 mg/dL (8.5-10.1); Chloride, Blood 111.0 mmol/L (98-108); Creatinine, Blood 1.33 mg/dL (0.40-1.00); Glucose, Blood 72.0 mg/dL (70-99); Potassium, Blood 3.5 mmol/L (3.5-5.5); Sodium, Blood 142.0 mmol/L (136-145)
--- NOTE | 2024-11-06 06:30 | NUR ---
PT ARRIVED ON THE UNIT AT 2041 FROM ED VIA CART.SECOND UNIT OF BLOOD AND PROTONIX INFUSING.REVIEWED S/S OF BLOOD TRANSFUSION WITH PT.PT MONITORED DURING THE SHIFT,NO S/S OF BLOOD TRANSFUSION REACTION NOTED.HEMOGLOBIN IMPROVED FROM 5.6 TO 8.8 THIS MORNING.PT AWAKE AT HIS TIME,DENIES PAIN,DENIES SOB,DENIES NEEDS.CALL LIGHT AND PT'S ITEMS WITHIN REACH.MONITORING ONGOING PER CAREPLAN.
[2024-11-06] MEDS ORDERED: Sod Ferric Gluc Complx/Sucrose 125 MG in NS 100 ML IV SCH (11:00)
--- NOTE | 2024-11-06 17:41 | NUR ---
NO ACUTE CHANGE FOR THE SHIFT. PROTONIX CONTINUES TO INFUSE. VITALS HAS BEEN STABLE. DR MARIE ABLE TO ROUND ON PT, NO SCOPE RECOMMENDED AT THIS TIME, CAPSULE CAM TO BE DONE OUTPT. DIET ADVANCED TO CARDIAC DIET. PT HAS BEEN GETTING UP TO BSC AND RECLINER SBA. PT HAS BEEN PLEASANT AND COOPERATIVE. INTERMITTENT CONFUSION. FAMILY CAME IN TO VISIT WAS GIVEN UPDATE REGARDING PT'S STATUS. TO RECHECK HGB IN AM, CARDIOLOGY TO BE CONSULTED IF BLOOD THINNERS NEEDS TO BE RESUMED. WILL REPORT TO ONCOMING SHIFT
[2024-11-06] MEDS ORDERED: TORSE20 PO (18:25)
[2024-11-06] MEDS ORDERED: LOSA25 PO (18:25)
[2024-11-06] MEDS ORDERED: POTA10T PO (18:25)
[2024-11-06] MEDS ORDERED: ROPINIROLE HCL4 M1 PO (18:26)
--- NOTE | 2024-11-06 19:39 | NUR ---
ASSUMPTION OF CARE ASSUMED PT'S CARE AT 1900.PT WIDE AWAKE RESTING IN BED.BEDSIDE REPORT COMPLETED.PLAN OF CARE REVIEWED.PT DENIES PAIN,DENIES NEEDS AT THIS TIME.CALL LIGHT AND PT'S ITEMS WITHIN REACH.MONITORING ONGOING PER CAREPLAN.
[2024-11-06] MEDS ORDERED: Arginine/Glutamine/Calcium Hmb 1 Packet PO SCH (21:00)
[2024-11-07 03:40] VITALS: BP 130/72
[2024-11-07 04:43] LABS: BASOPHILS ABSOLUTE AUTO 0.04 K/mm3 (0.00-0.23); BASOPHILS PERCENT AUTO 1 % (0-2); EOSINOPHILS ABSOLUTE AUTO 0.17 K/mm3 (0.00-0.68); EOSINOPHILS PERCENT AUTO 2 % (0-6); Hematocrit 26.3 % (33.0-51.0); Hemoglobin 8.5 g/dL (11.5-16.0); IMMATURE GRAN ABSOLUTE AUTO 0.02 K/mm3 (0.00-0.10); IMMATURE GRAN PERCENT AUTO 0 % (0-1); LYMPHOCYTES ABSOLUTE AUTO 1.68 K/mm3 (0.84-5.20); LYMPHOCYTES PERCENT AUTO 24 % (21-46); MONOCYTES ABSOLUTE AUTO 0.85 K/mm3 (0.16-1.47); MONOCYTES PERCENT AUTO 12 % (4-13); Mean Corpuscular HGB Conc 32.3 g/dL (31.5-36.5); Mean Corpuscular Volume 77 fL (80-100); NEUTROPHILS ABSOLUTE AUTO 4.30 K/mm3 (1.96-9.15); NEUTROPHILS PERCENT AUTO 61 % (41-73); NRBC ABSOLUTE 0.00 K/mm3 (0.00-0.02); NRBC Auto 0.0 /100 WBC (0.0-0.2); Platelet Count 305 K/mm3 (150-400); RDW Coefficient Variation 16.1 % (11.7-14.2); RDW Standard Deviation 44.4 fL (35.1-46.3)
[2024-11-07 05:14] LABS: Anion Gap 9.0 mmol/L (3-11); Blood Urea Nitrogen 16.0 mg/dL (8-24); CO2, Blood 23.0 mmol/L (21-32); Calcium, Blood 8.9 mg/dL (8.5-10.1); Chloride, Blood 111.0 mmol/L (98-108); Creatinine, Blood 1.09 mg/dL (0.40-1.00); Glucose, Blood 85.0 mg/dL (70-99); Potassium, Blood 3.4 mmol/L (3.5-5.5); Sodium, Blood 140.0 mmol/L (136-145)
--- NOTE | 2024-11-07 06:23 | NUR ---
PT MONITORED DURING THE SHIFT.PT PLEASANTLY CONFUSED AND IMPULSIVE.PT PULLED OUT ONE OF THE PIVS.PT REMORSEFUL AND SAID THAT SHE DIDN'T KNOW WHAT IT WAS.PT UPTO THE BEDSIDE COMMODE WITH ONE ASSIST.PT HAD AN EXTRA LARGE BOWEL MOVEMENT,CARDIAC REHAB NURSE SAID THAT STOOL WAS DARK COLORED BUT NO EVIDENCE OF BRIGHT RED BLOOD NOTED IN STOOL.PT SLEEPING AT THIS TIME,EASILY AROUSABLE.PT DENIES PAIN,DENIES NEEDS.CALL LIGHT AND PT'S ITEMS WITHIN REACH,BED ALARM IN USE FOR FALL PREVENTION SAFETY.MONITORING ONGOING PER CAREPLAN.
--- NOTE | 2024-11-07 07:19 | NUR ---
AT 0645 PT GOT OUT OF BED,STAFF NOTIFIED BY BED ALARM.UPON ENTERING THE ROOM,OBSERVED PT SITTING UP IN AT THE EDGE OF THE BED,BLEEDING FROM IV SITES.PT PULLED OUT THE IVS,REMOVED GOWN,PULLED OFF THE TELE WIRES AND PATCHES .PT SAID THAT SHE WAS GETTING RID OF THE PLASTICS ALL OVER HER.PT CONFUSED BUT APOLOGISES FOR PULLING THE IVS OUT.PT SAYS "I AM STUPID".PT REORIENTED,CLEANED AND SETTLED BACK IN BED.LFA INSERTED ,PPI INFUSION RESTARTED.
[2024-11-07 09:52] VITALS: BP 138/63
[2024-11-07 11:53] VITALS: BP 111/68
[2024-11-07 15:39] VITALS: BP 130/64
--- NOTE | 2024-11-07 18:48 | NUR ---
SHIFT SUMMARY PATIENT IS ALERT, ABLE TO FOLLOW COMMANDS AND MAKE NEEDS KNOWN. PATIENT EXHIBITS LABILE MOODS AND INTERMITTENTLY INCREASED LEVELS OF CONFUSION. VSS, TELE IN PLACE, HR IN 60'S-70'S, PATIENT IS AV PACED, SPO2 >90% ON RA. PATIENT DENIES PRESENCE OF CHEST PAIN, PRESSURE, OR SHORNTESS OF BREATH. PATIENT DENIES N/V/D. PATIENT DENIES PAIN OR DIFFICULTY URINATING. CARDIOLOGY CONSULT TODAY, SEE NOTE FOR MORE INFORMATION. PATIENT IS A SBA TO BATHROOM, FORGETS LIMITATIONS. PATIENT IN BED, BED IN LOWEST POSITION, BED ALARM ARMED, CALL LIGHT WITHIN REACH.
[2024-11-07 19:40] VITALS: BP 108/57
[2024-11-07 23:26] VITALS: BP 125/71
[2024-11-08 03:45] VITALS: BP 128/71
--- NOTE | 2024-11-08 05:05 | NUR ---
SHIFT SUMMARY PT A&O X2-3. INTERMITTENT CONFUSION. SETTING OFF BED ALARM MULTIPLE TIMES DURING THIS SHIFT. EASILY REDIRECTABLE. UP TO BSC WITH 1P ASSIST. AV PACED AT 60. VSS. DENIES CHEST PAIN/PRESSURE. PROTONIX GTT INFUSING PER EMAR. BED IN LOWEST POSITION AND CALL LIGHT WITHIN REACH. THIS RN WILL REPORT TO ONCOMING DAYSHIFT RN.
[2024-11-08 06:51] LABS: BASOPHILS ABSOLUTE AUTO 0.05 K/mm3 (0.00-0.23); BASOPHILS PERCENT AUTO 1 % (0-2); EOSINOPHILS ABSOLUTE AUTO 0.20 K/mm3 (0.00-0.68); EOSINOPHILS PERCENT AUTO 3 % (0-6); Hematocrit 27.6 % (33.0-51.0); Hemoglobin 8.4 g/dL (11.5-16.0); IMMATURE GRAN ABSOLUTE AUTO 0.03 K/mm3 (0.00-0.10); IMMATURE GRAN PERCENT AUTO 1 % (0-1); LYMPHOCYTES ABSOLUTE AUTO 1.29 K/mm3 (0.84-5.20); LYMPHOCYTES PERCENT AUTO 21 % (21-46); MONOCYTES ABSOLUTE AUTO 0.70 K/mm3 (0.16-1.47); MONOCYTES PERCENT AUTO 12 % (4-13); Mean Corpuscular HGB Conc 30.4 g/dL (31.5-36.5); Mean Corpuscular Volume 79 fL (80-100); NEUTROPHILS ABSOLUTE AUTO 3.81 K/mm3 (1.96-9.15); NEUTROPHILS PERCENT AUTO 63 % (41-73); NRBC ABSOLUTE 0.02 K/mm3 (0.00-0.02); NRBC Auto 0.3 /100 WBC (0.0-0.2); Platelet Count 303 K/mm3 (150-400); RDW Coefficient Variation 17.0 % (11.7-14.2); RDW Standard Deviation 47.8 fL (35.1-46.3)
[2024-11-08 07:06] LABS: Alanine Aminotransfer (ALT/SGP 8.0 U/L (12-78); Albumin, Blood 3.4 g/dL (3.4-5.0); Albumin/Globulin Ratio 1.3 (0.8-1.8); Anion Gap 10.0 mmol/L (3-11); Aspartate Aminotrans (AST/SGOT 13.0 U/L (12-37); Bilirubin, Total 0.5 mg/dL (0.1-1.0); Blood Urea Nitrogen 18.0 mg/dL (8-24); CO2, Blood 21.0 mmol/L (21-32); Calcium, Blood 8.8 mg/dL (8.5-10.1); Chloride, Blood 114.0 mmol/L (98-108); Creatinine, Blood 1.18 mg/dL (0.40-1.00); Globulin, Blood 2.7 g/dL (2.2-4.0); Glucose, Blood 89.0 mg/dL (70-99); Potassium, Blood 3.7 mmol/L (3.5-5.5); Sodium, Blood 141.0 mmol/L (136-145); Total Protein, Blood 6.1 g/dL (6.4-8.2)
[2024-11-08 08:12] VITALS: BP 149/75
--- NOTE | 2024-11-08 09:13 | NUR ---
AM NOTE: PATIENT ALERT AND ORIENTED. INTERMIT CONFUSION. EMOTIONAL AT TIMES. ABLE TO COMMUNICATE NEEDS. BED ALARM AND CHAIR ALARMS IN PLACE. MOVING ALL EXTREMITIES. UP WITH SBA WITH WALKER FOR WALK AROUND UNIT THIS AM. DENIES PAIN. STATES "I AM FEELING REALLY GOOD". ON ROOM AIR SATING ABOVE 95%. LUNG SOUNDS CLEAR. DENIES SOB/COUGH. TELE SHOWING SR WITH A/V PACED. HR 60-70'S. DENIES CHEST PAIN/PRESSURE/PALPIATIONS. PPP. BOWEL TONES PRESENT. DENIES ABDOMINAL PAIN/NAUSEA. TOLERATING PO DIET. PROTONIX GTT INFUSING PER EMAR. ATTENDS IN PLACE. BED BATH THIS AM. SKIN PALE WITH SCATTERED BRUISING AND BLANCHABLE REDDENED COCCYX. DR. KING TO BEDSIDE THIS AM, THIS RN PRESENT FOR MD ROUNDING. POSSIBLE DISCHARGE THIS AFTERNOON. CALL LIGHT IN REACH. PATIENT IN RECLINER AT THIS TIME WITH CHAIR ALARM IN PLACE.
[2024-11-08] MEDS ORDERED: JUVEN PACKET1 EAC3 PO (09:49)
[2024-11-08] MEDS ORDERED: FERSU300 PO (09:50)
--- NOTE | 2024-11-08 10:19 | NUR ---
DISCHARGE: NO ACUTE CHANGES. YARED IN TO PICK PATIENT UP. DISCHARGE INFORMATION REVIEWED WITH PATIENT AND . THIS RN EDUCATED ON FOLLOW UP APPOINTMENTS, NEW MEDICATIONS, MEDICATIONS TO STOP, SIGNS AND SYMPTOMS OF WHEN TO RETURN AND TO CLINICAL INFORMATICS PHYSICIAN MEDICATIONS FROM [facility]. IV'S REMOVED WNL. TELE BOX RETURNED. PATIENT LEFT UNIT WITH ALL PERSONAL BELONGINGS VIA WHEELCHAIR.
== END 2024-11-08 10:16 | disposition home or self-care (01) | DRG 811 ==
LOC: ER 12:04 → PCU 17:11
PROVIDERS: Emergency Medicine; Internal Medicine; Physician Assistant; ADMIT Family Medicine
PROC: 30233N1 Transfusion of Nonautologous Red Blood Cells into Peripheral Vein, Percutaneous Approach (ICD-10-PCS; principal; 2024-11-05)
DX: D62 Acute posthemorrhagic anemia (principal); G93.41 Metabolic encephalopathy; I42.8 Other cardiomyopathies; I50.22 Chronic systolic (congestive) heart failure; I13.0 Hypertensive heart and chronic kidney disease with heart failure and stage 1 through stage 4 chronic kidney disease, or unspecified chronic kidney disease; D50.9 Iron deficiency anemia, unspecified; I48.0 Paroxysmal atrial fibrillation; Z79.01 Long term (current) use of anticoagulants; E78.5 Hyperlipidemia, unspecified; N18.30 Chronic kidney disease, stage 3 unspecified; I25.10 Atherosclerotic heart disease of native coronary artery without angina pectoris; Z86.79 Personal history of other diseases of the circulatory system; Z87.19 Personal history of other diseases of the digestive system; M54.9 Dorsalgia, unspecified; G89.29 Other chronic pain; G47.30 Sleep apnea, unspecified; I25.2 Old myocardial infarction; K64.4 Residual hemorrhoidal skin tags; Z90.49 Acquired absence of other specified parts of digestive tract; Z95.0 Presence of cardiac pacemaker; Z87.891 Personal history of nicotine dependence; Z66 Do not resuscitate; Z88.8 Allergy status to other drugs, medicaments and biological substances; Z79.02 Long term (current) use of antithrombotics/antiplatelets; Z79.899 Other long term (current) drug therapy; Z98.890 Other specified postprocedural states
CPT/HCPCS: 36415; 36430; 70450; 70496; 70498; 71045; 74177; 80048; 80053; 80320; 81001; 82607; 82728; 82746; 82803; 83540; 83550; 84439; 84443; 85014; 85018; 85025; 86850; 86900; 86901; 86923; 87086; 93005; 93010; 99285-25; A6590; A9270; J2470; J2916; J7030; P9016; Q9967

== ENCOUNTER → 2025-02-28 | Outpatient (CLI) | payer OTHER ==
[~2025-02-28] MED LIST changes: +FERSU300 PO; +LOSA25 PO; +POTA10T PO; +ROPINIROLE HCL4 M1 PO; +TORSE20 PO
== END | disposition home or self-care (01) ==
LOC: LAB 15:10 → LAB SHORT 15:10
DX: R82.998 Other abnormal findings in urine (principal)
CPT/HCPCS: 87086